=== PATIENT | female | born 1985 | race Caucasian/White ===

== ENCOUNTER 2021-10-16 20:06 | Emergency (ER) | payer OTHER, SELFPAY ==
[2021-10-16 21:21] VITALS: BP 152/87; PULSE 88; RESP 13; TEMP 36.4; O2SAT 93; BMI 56.9
--- NOTE | 2021-10-16 23:25 | ED.BACK ---
HPI - Back Pain/Injury General Chief Complaint: Back Pain/Injury Stated Complaint: work inj, lower back Time Seen by Provider: 10/16/21 22:36 Source: patient Mode of arrival: ambulatory Limitations: no limitations History of Present Illness HPI Narrative: Patient morbidly obese was at work was lifting and twisting a box on the shelf which was about 36 lb since then complaining of pain in the sacral area. No paresthesias in lower extremities no bladder or bowel involvement Related Data Previous Rx's Medication Instructions Recorded cyclobenzaprine 10 mg tablet 10 mg PO Q8H #20 tabs 10/16/21 oxycodone-acetaminophen 5 mg-325 1 tab PO Q6H PRN pain #20 tabs 10/16/21 mg tablet (Percocet) Allergies Allergy/AdvReac Type Severity Reaction Status Date / Time No Known Allergies Allergy Unverified 01/01/20 17:25 Review of Systems Review of Systems: Yes all other systems are reviewed and are negative PMFSH Social History Social History Advance Directives: No Advance Directives Information Provided: No Physical Exam Vital Signs: Vital Signs: Last Vital Signs Temp 97.5 F 10/16/21 21:21 Pulse 88 10/16/21 21:21 Resp 13 10/16/21 21:21 BP 152/87 H 10/16/21 21:21 Pulse Ox 93 10/16/21 21:21 O2 Del Method 10/16/21 21:21 BMI result Body Mass Index 56.9 Appearance: Alert. Oriented X3. No acute distress. Obese Neck: Normal inspection. Neck supple. CVS: Normal heart rate and rhythm. Pulses normal. Respiratory: No respiratory distress. Equal air entry bilateral, Abdomen: Soft and nontender. Bowel sounds are present, no mass palpable, no CVA tenderness Skin: Skin warm and dry. Normal skin color. Normal skin turgor. Extremities: No lower extremity edema. No calf tenderness back: Diffuse deep tenderness bilateral sacral area no focal spinal tenderness SLR negative good range of movement of the spine Neuro: Oriented X 3. No motor deficit. No sensory deficit MDM - Back Pain/Injury MDM Narrative Medical decision making narrative: Patient with muscular pain no signs of spinal cord involvement. No bladder or bowel involvement Secral sensations intact discharge patient home on pain medication and muscle aches Discharge Plan Discharge Clinical Impression: Strain of lumbar region Patient Disposition: Home, Self-Care Instructions: Back Pain (ED) Additional Instructions: Apply ice pack Take pain medication as prescribed and follow with PCP if not better Prescriptions: New cyclobenzaprine 10 mg tablet 10 mg PO Q8H Qty: 20 0RF oxycodone-acetaminophen [Percocet] 5-325 mg tablet 1 tab PO Q6H PRN (Reason: pain) Qty: 20 0RF Rx Instructions: Partial Fill upon patient request. Stand Alone Forms: Work/School Release
[2021-10-17] MEDS: Cyclobenzaprine HCl 10 MG TABLET PO (00:29)
[2021-10-17] MEDS: oxyCODONE HCl Immed Release 5 MG TABLET 10 MG PO (00:31)
== END 2021-10-17 00:39 | disposition home or self-care (01) ==
PROVIDERS: Emergency Provider Internal Medicine
DX: M54.50 Low back pain, unspecified (principal); Z79.899 Other long term (current) drug therapy
CPT/HCPCS: 99283

== ENCOUNTER 2022-08-13 16:14 | Inpatient (IN) | payer OTHER, SELFPAY ==
[2022-08-13] VITALS (9 sets, daily range): BP systolic 143–167; BP diastolic 73–94; PULSE 83–97; RESP 15–21; TEMP 36.6–37.3; O2SAT 92–98; BMI 57.0
--- NOTE | ~2022-08-13 | FL_ITS ---
EXAMINATION: XR FLUOROSCOPY WITH IMAGES CLINICAL INFORMATION: Distal radius fracture COMPARISON: Previous x-ray 08/13/2022 TECHNIQUE: Fluoroscopy Supervised By: Dr. Heraclio Bo. Fluoroscopy Time: 1.2 minutes. Cumulative Dose: 2.5 mGy. DAP: 0.05 mg/sq m. Images: 3. FINDINGS: Images demonstrate a plate and screws transfixing the distal radius fracture and K wire across the distal radius and ulna with improved alignment. There is a minimally displaced ulnar styloid fracture with improved alignment. FL/FL guidance in OR IMPRESSION: Fluoroscopic guidance for ORIF of distal radius fracture.
--- NOTE | ~2022-08-13 | CT_ITS ---
EXAMINATION: CT ANGIOGRAM UPPER EXTREMITY, RIGHT CLINICAL INFORMATION: Right wrist and forearm pain. COMPARISON: Radiographs from 08/13/2022 TECHNIQUE: Multidetector volumetric imaging of the right upper extremity is performed targeting from the elbow through the hand after administration of 80 mL of Omnipaque 350 IV contrast. Coronal, sagittal, and three-dimensional/MIP reformatted images are obtained on the technologist workstation under concurrent radiologist supervision. These are reviewed. This CT examination was performed using dose optimization techniques as appropriate, variously including the following: *Automated exposure control *Adjustment of mA and/or kV according to patient size (this includes techniques or standardized protocols for targeted exams where dose is matched to indication/reason for exam; i.e. extremities or head) *Use of iterative reconstruction technique DLP: 171 mGy-cm FINDINGS: Vascular: There is normal appearance of the radial and ulnar arteries. The interosseous artery is normal along the majority of its course. At the level of the distal radial fracture, this vessel is no longer well opacified. There is no contrast blush to suggest active extravasation. Comminuted distal radial metaphyseal fracture is again noted with multiple fragments identified. Fracture appears to extend to the radial styloid. No definite fracture line at the radiocarpal articulation. There is mild volar displacement of the distal fragments. Superficial edema the site of fracture. Ulnar styloid fracture again noted with mild displacement. The carpal bones appear well aligned. The bones of the hand appear intact. Appropriate alignment at the elbow. No elbow joint effusion. CT/CT angio UE RT IMPRESSION: 1. Comminuted distal radial metaphyseal fracture with extension to the radial styloid. No definite intra-articular extension at the radiocarpal articulation. 2. Ulnar styloid fracture again noted. 3. The radial and ulnar arteries are intact. The interosseous artery is not well opacified at the level of the distal radial fracture. No active extravasation seen. This could be secondary to compression or vasospasm.
--- NOTE | ~2022-08-13 | XR_ITS ---
Exams: 3 views right wrist and 2 views right forearm HISTORY: Status post reduction. Comparison made to earlier exam same day. FINDINGS: Proximal radius and ulnar appears intact. Following reduction, the appearance of the comminuted fracture appears without measurable change. Remains measurably displaced. No new findings. XR/XR forearm RT 2V IMPRESSION: No significant change in the appearance of the comminuted displaced radial fracture. No proximal abnormality of the forearm.
--- NOTE | ~2022-08-13 | XR_ITS ---
EXAMINATION: XR WRIST, RIGHT CLINICAL INFORMATION: Post reduction COMPARISON: 08/13/2022 TECHNIQUE: PA, lateral, and oblique views of the right wrist. FINDINGS: Splinting material now in place. Redemonstration of the comminuted distal radial metaphyseal fracture. There is persistent volar displacement of the distal fragment. Ulnar styloid fracture which remains displaced. The carpal rows are well aligned. Diffuse soft tissue swelling. XR/XR wrist RT 2V IMPRESSION: Comminuted distal radial metaphyseal fracture with persistent volar displacement of the distal fragment. Ulnar styloid fracture.
--- NOTE | ~2022-08-13 | XR_ITS ---
Exams: 3 views right wrist and 2 views right forearm HISTORY: Status post reduction. Comparison made to earlier exam same day. FINDINGS: Proximal radius and ulnar appears intact. Following reduction, the appearance of the comminuted fracture appears without measurable change. Remains measurably displaced. No new findings. XR/XR wrist RT min 3V IMPRESSION: No significant change in the appearance of the comminuted displaced radial fracture. No proximal abnormality of the forearm.
--- NOTE | ~2022-08-13 | XR_ITS ---
EXAMINATION: XR WRIST, RIGHT XR HAND, RIGHT CLINICAL INFORMATION: Pain status post fall COMPARISON: None available. TECHNIQUE: PA, lateral, and oblique views of the right wrist and PA, lateral, and oblique views of the right hand FINDINGS: Acute fracture of the distal radius with comminution. Volar displacement of the epiphysis one shaft width with associated mildly displaced ulnar styloid fracture. Carpal bones appear intact. XR/XR hand wrist RT IMPRESSION: Acute displaced fracture of the distal radius and ulnar styloid fracture as above.
--- NOTE | 2022-08-13 17:55 | ED_ITS ---
HPI - Extremity Problem General Chief complaint: Extremity Injury, Upper <NAYELI Merritt - Last Filed: 08/15/22 13:07> Stated complaint: fall/R arm inj <NAYELI Merritt Last Filed: 08/15/22 13:07> Time Seen by Provider: 08/13/22 18:24 <NAYELI Merritt Last Filed: 08/15/22 13:07> Source: patient <NAYELI Izaguirre Last Filed: 08/14/22 01:32> Mode of arrival: ambulatory <NAYELI Izaguirre Last Filed: 08/14/22 01:32> Limitations: no limitations <NAYELI Izaguirre Last Filed: 08/14/22 01:32> History of Present Illness HPI Narrative: 37 year old female with no significant PMH presents to the ED with R forearm/wrist pain after a FOOSH, reports she tripped and fell. Denies preceding symptoms to falls. Patient denies head/abdomen/pelvis injury. No prior injuries to the area. Patient is not on blood thinners. Denies numbness and tingling <NAYELI Izaguirre Last Filed: 08/14/22 01:32> Related Data Home medications: Home Medications Medication Instructions Recorded Confirmed albuterol sulfate 90 mcg/actuation 2 puff inhalation Q4H PRN wheezing 08/14/22 08/14/22 aerosol inhaler (Ventolin HFA) atorvastatin 10 mg tablet 20 mg PO DAILY 08/14/22 08/14/22 dapagliflozin 5 mg tablet (Farxiga) 5 mg PO DAILY 08/14/22 08/14/22 ferrous sulfate 325 mg (65 mg 325 mg PO DAILY 08/14/22 08/14/22 iron) tablet glipizide 5 mg tablet, extended 5 mg PO DAILY 08/14/22 08/14/22 release 24 hr levothyroxine 300 mcg tablet 150 mcg PO ALEXIS@59908/14/22 08/14/22 levothyroxine 300 mcg tablet 300 mcg PO MOTUWETHFRSA@0600 08/14/22 08/14/22 losartan 25 mg tablet 25 mg PO DAILY 08/14/22 08/14/22 omeprazole 20 mg capsule,delayed 20 mg PO DAILY 08/14/22 08/14/22 release <NAYELI Merritt Last Filed: 08/15/22 13:07> Allergies/Adverse reactions: Allergies Allergy/AdvReac Type Severity Reaction Status Date / Time No Known Allergies Allergy Verified 08/13/22 17:55 <NAYELI Merritt Last Filed: 08/15/22 13:07> Review of Systems Review of Systems: Constitutional : No Weight loss, No Fever, No Chills, No Fatigue, No Malaise ENT/Mouth : No sore throat, No Rhinorrhea Eyes: No Eye Pain, No Swelling, No Redness Cardiovascular : No Chest Pain, No SOB, No Dyspnea on Exertion, No Orthopnea, No Edema, No Palpitations Respiratory : No Cough, No Sputum, No Wheezing Gastrointestinal : No Nausea, No Vomiting, No Diarrhea, No Constipation, No abdominal Pain, No Hematochezia, No Melena Genitourinary : No Dysuria, No Urinary Frequency, No Hematuria, Musculoskeletal : + joint pain, No Myalgias, + Joint Swelling Skin : No Skin Lesions, No rash Neuro : No Weakness, No Numbness, No Dizziness, No Headache Psych : No Anxiety/Panic, No Depression All other systems reviewed and are negative <NAYELI Izaguirre - Last Filed: 08/14/22 01:32> Yes all other systems are reviewed and are negative <NAYELI Izaguirre Last Filed: 08/14/22 01:32> PMFSH Past Medical History Attestation statement: The following information was validated with the patient. <NAYELI Izaguirre - Last Filed: 08/14/22 01:32> Source: old records reviewed and nursing notes reviewed <NAYELI Izaguirre - Last Filed: 08/14/22 01:32> Medical History: Medical History (Updated 08/14/22 @ 12:58 by Janet Bettencourt NP) Asthma Diabetes 1.5, managed as type 2 GERD (gastroesophageal reflux disease) Hyperlipidemia Hypertension Hypothyroidism <NAYELI Merritt Last Filed: 08/15/22 13:07> Social History Social History: Social History Household Members: Spouse Housing: House Do you presently have visiting nurse or other home services: No Alcohol intake: current Alcohol intake frequency: holidays/special occasions only Alcohol type: hard liquor Patient Tobacco Use Status: Current everyday Tobacco user Tobacco use type: Cigarette e-Cigarette/Vaping Use: Never Used Second Hand Smoke Exposure: Yes Substance Use Type: Other service: No <NAYELI Merritt - Last Filed: 08/15/22 13:07> Physical Exam Vital Signs: Vital Signs: Last Vital Signs Temp 97.1 F 08/15/22 07:57 Pulse 79 08/15/22 07:57 Resp 18 08/15/22 07:57 BP 138/63 08/15/22 07:57 Pulse Ox 95 08/15/22 07:57 O2 Del Method Room Air 08/15/22 07:57 O2 Flow Rate 2 08/14/22 07:22 Oxygen Flow Rate 2 08/13/22 22:05 BMI result Body Mass Index 57.0 <NAYELI Merritt - Last Filed: 08/15/22 13:07> Vital Signs: Last Vital Signs Temp 97.1 F 08/15/22 07:57 Pulse 79 08/15/22 07:57 Resp 18 08/15/22 07:57 BP 138/63 08/15/22 07:57 Pulse Ox 95 08/15/22 07:57 O2 Del Method Room Air 08/15/22 07:57 O2 Flow Rate 2 08/14/22 07:22 Oxygen Flow Rate 2 08/13/22 22:05 BMI result Body Mass Index 57.0 vss <NAYELI Izaguirre - Last Filed: 08/14/22 01:32> Vital Signs: Last Vital Signs Temp 97.1 F 08/15/22 07:57 Pulse 79 08/15/22 07:57 Resp 18 08/15/22 07:57 BP 138/63 08/15/22 07:57 Pulse Ox 95 08/15/22 07:57 O2 Del Method Room Air 08/15/22 07:57 O2 Flow Rate 2 08/14/22 07:22 Oxygen Flow Rate 2 08/13/22 22:05 BMI result Body Mass Index 57.0 <NAYELI Khanna - Last Filed: 08/14/22 08:44> Appearance: Alert.? Oriented X3.? No acute distress.? Head: Normocephalic, atraumatic, no step-offs or deformities Eyes: Pupils equal, round and reactive to light.? Neck: Normal inspection.? Neck supple.? CVS: Normal heart rate and rhythm.? Pulses normal.? Respiratory: No respiratory distress.? Breath sounds normal.? Abdomen: Soft and nontender.? Skin: Skin warm and dry.? Normal skin color.? Normal skin turgor.? Extremities: No lower extremity edema.? No calf ttp. 5/5 strength to bilateral upper and lower extremities 2 + radial pulses equal and b/l no wrist drop, brisk capillary refill < 2 seconds to b/l UE. Full ROM to L writ unable to move R wrist due to pain. TTP overlying entire R. wrist w/ dorsal ecchymosis. Normal L wrist. + deformity of R wrist. Neuro: Oriented X 3.? No motor deficit.? No sensory deficit. CN 2-12 intact <NAYELI Izaguirre Last Filed: 08/14/22 01:32> Course Course Course Narrative: RME: 37 yold female presents to the ED for right wrist pain after falling unto hand at home. patient staes no head trauma. xray ordered <NAYELI Merritt Last Filed: 08/15/22 13:07> Reevaluation(s) Reevaluation #1: X-ray showed an acute displaced fracture of the distal radius and ulnar st yloid fracture. Hematoma block was done at the bedside to try to reduce however patient too much pain, I did order images after trying to reduce it however unsure if successful. Will proceed to do conscious sedation verbal and written consent obtained. Patient last drink something around 15:00. My attending aware. <NAYELI Izaguirre Last Filed: 08/14/22 01:32> Time: 19:00 <NAYELI Izaguirre Last Filed: 08/14/22 01:32> Reevaluation #2: Post hematoma block there is no significant change in the appearance of comminuted displaced radial fracture. No proximal abnormality of the forearm. <NAYELI Izaguirre Last Filed: 08/14/22 01:32> Time: 21:35 <NAYELI Izaguirre Last Filed: 08/14/22 01:32> Reevaluation #3: I did obtain written and verbal consent for conscious sedation, javed Oconnor at the bedside for conscious sedation for right wrist reduction. Mallampati score of 3, respiratory called to the bedside. Plan on sedating with propofol. <NAYELI Izaguirre Last Filed: 08/14/22 01:32> Time: 21:35 <NAYELI Izaguirre Last Filed: 08/14/22 01:32> Additional Reevaluation(s): Unsuccessful reduction Spoke with orthopedic Manuel about this case, they will evaluate her in the morning, we will control pain overnight, if patient cannot be operated on tomorrow morning ortho agreed to admit this patient. You note, patient's white blood cells elevated likely secondary to acute trauma, unlikely infectious in origin. Chemistry unremarkable. Coags unremarkable. Patient to remain NPO until the morning Night Doctor doctor oconnor aware of case. <NAYELI Izaguirre Last Filed: 08/14/22 01:32> Unsuccessful reduction Spoke with carlos Jackson about this case, they will evaluate her in the morning, we will control pain overnight, if patient cannot be operated on tomorrow morning ortho agreed to admit this patient. You note, patient's white blood cells elevated likely secondary to acute trauma, unlikely infectious in origin. Chemistry unremarkable. Coags unremarkable. Patient to remain NPO until the morning Night Doctor doctor oconnor aware of case. 08/14/22--case discussed with OrthopedicsNAYELI who evaluated patient in the ED, plan for admission and likely OR tomorrow <NAYELI hKanna - Last Filed: 08/14/22 08:44> Medications Administered Generic Name Dose Route Start Last Admin Trade Name Freq PRN Reason Stop Dose Admin Atorvastatin Calcium 20 mg 08/15/22 09:00 08/15/22 08:25 Atorvastatin Calcium 20 Mg Tablet PO 20 mg DAILY [facility] Administration Docusate Sodium 100 mg 08/14/22 09:00 08/15/22 08:25 Docusate Sodium 100 Mg Capsule PO 100 mg BID LAURA Administration Empagliflozin 10 mg 08/15/22 09:00 08/15/22 08:27 Empagliflozin 10 Mg Tablet PO Not Given DAILY [facility] Ferrous Sulfate 324 mg 08/15/22 09:00 08/15/22 08:27 Ferrous Sulfate 324 Mg Tablet.Dr PO Not Given DAILY [facility] Hydromorphone HCl 1 mg 08/14/22 03:14 08/14/22 23:38 Hydromorphone Hcl 1 Mg/Ml Syringe IVPUSH 1 mg RQ4H WHILE AWAKE PRN Administration Pain, Severe (Pain Scale 8-10) Protocol Lactated Ringer's 1,000 mls @ 100 mls/hr 08/14/22 09:00 08/15/22 06:28 Lr IVCONT 100 mls/hr .Q10H [facility] Administration Insulin Human Lispro 0 unit 08/15/22 11:30 08/15/22 11:33 Insulin Lispro 100 Unit/Ml 3 Ml Vial SUBCUT Not Given QIDACHS [facility] Protocol Losartan Potassium 25 mg 08/15/22 09:00 08/15/22 08:26 Losartan Potassium 25 Mg Tablet PO 25 mg DAILY [facility] Administration Protocol Sodium Chloride 3 ml 08/14/22 16:00 08/15/22 06:51 0.9 % Sodium Chloride Flush 3 Ml Syringe IVFLUSH Not Given QSHIFT [facility] Discontinued Medications Generic Name Dose Route Start Last Admin Trade Name Freq PRN Reason Stop Dose Admin Fentanyl 50 mcg 08/13/22 22:49 08/13/22 23:05 Fentanyl Citrate/Pf 100 Mcg/2 Ml Vial IVPUSH 08/13/22 22:50 50 mcg ONCE ONE Administration Protocol Lidocaine HCl 30 ml 08/13/22 18:57 08/13/22 19:14 Lidocaine Hcl 1 % Mpf 30 Ml Vial SUBCUT 08/13/22 18:58 30 ml ONCE ONE Administration Protocol Morphine Sulfate 4 mg 08/13/22 19:02 08/13/22 19:14 Morphine Sulfate 4 Mg/Ml Cartridge IVPUSH 08/13/22 19:03 4 mg ONCE ONE Administration Protocol Morphine Sulfate 4 mg 08/13/22 21:35 08/13/22 22:30 Morphine Sulfate 4 Mg/Ml Cartridge IVPUSH 08/13/22 21:36 4 mg ONCE ONE Administration Protocol Propofol 170 mg 08/13/22 21:52 08/13/22 21:57 Propofol 200 Mg/20 Ml Vial IVPUSH 08/13/22 21:53 170 mg ONCE ONE Administration <NAYELI Merritt - Last Filed: 08/15/22 13:07> Medications Administered Generic Name Dose Route Start Last Admin Trade Name Maricarmen PRN Reason Stop Dose Admin Atorvastatin Calcium 20 mg 08/15/22 09:00 08/15/22 08:25 Atorvastatin Calcium 20 Mg Tablet PO 20 mg DAILY [facility] Administration Docusate Sodium 100 mg 08/14/22 09:00 08/15/22 08:25 Docusate Sodium 100 Mg Capsule PO 100 mg BID [facility] Administration Empagliflozin 10 mg 08/15/22 09:00 08/15/22 08:27 Empagliflozin 10 Mg Tablet PO Not Given DAILY [facility] Ferrous Sulfate 324 mg 08/15/22 09:00 08/15/22 08:27 Ferrous Sulfate 324 Mg Tablet.Dr PO Not Given DAILY [facility] Hydromorphone HCl 1 mg 08/14/22 03:14 08/14/22 23:38 Hydromorphone Hcl 1 Mg/Ml Syringe IVPUSH 1 mg RQ4H WHILE AWAKE PRN Administration Pain, Severe (Pain Scale 8-10) Protocol Lactated Ringer's 1,000 mls @ 100 mls/hr 08/14/22 09:00 08/15/22 06:28 Lr IVCONT 100 mls/hr .Q10H [facility] Administration Insulin Human Lispro 0 unit 08/15/22 11:30 08/15/22 11:33 Insulin Lispro 100 Unit/Ml 3 Ml Vial SUBCUT Not Given QIDACHS [facility] Protocol Losartan Potassium 25 mg 08/15/22 09:00 08/15/22 08:26 Losartan Potassium 25 Mg Tablet PO 25 mg DAILY [facility] Administration Protocol Sodium Chloride 3 ml 08/14/22 16:00 08/15/22 06:51 0.9 % Sodium Chloride Flush 3 Ml Syringe IVFLUSH Not Given QSHIFT [facility] Discontinued Medications Generic Name Dose Route Start Last Admin Trade Name Jovannyq PRN Reason Stop Dose Admin Fentanyl 50 mcg 08/13/22 22:49 08/13/22 23:05 Fentanyl Citrate/Pf 100 Mcg/2 Ml Vial IVPUSH 08/13/22 22:50 50 mcg ONCE ONE Administration Protocol Lidocaine HCl 30 ml 08/13/22 18:57 08/13/22 19:14 Lidocaine Hcl 1 % Mpf 30 Ml Vial SUBCUT 08/13/22 18:58 30 ml ONCE ONE Administration Protocol Morphine Sulfate 4 mg 08/13/22 19:02 08/13/22 19:14 Morphine Sulfate 4 Mg/Ml Cartridge IVPUSH 08/13/22 19:03 4 mg ONCE ONE Administration Protocol Morphine Sulfate 4 mg 08/13/22 21:35 08/13/22 22:30 Morphine Sulfate 4 Mg/Ml Cartridge IVPUSH 08/13/22 21:36 4 mg ONCE ONE Administration Protocol Propofol 170 mg 08/13/22 21:52 08/13/22 21:57 Propofol 200 Mg/20 Ml Vial IVPUSH 08/13/22 21:53 170 mg ONCE ONE Administration <NAYELI Izaguirre - Last Filed: 08/14/22 01:32> Medications Administered Generic Name Dose Route Start Last Admin Trade Name Freq PRN Reason Stop Dose Admin Atorvastatin Calcium 20 mg 08/15/22 09:00 08/15/22 08:25 Atorvastatin Calcium 20 Mg Tablet PO 20 mg DAILY [facility] Administration Docusate Sodium 100 mg 08/14/22 09:00 08/15/22 08:25 Docusate Sodium 100 Mg Capsule PO 100 mg BID [facility] Administration Empagliflozin 10 mg 08/15/22 09:00 08/15/22 08:27 Empagliflozin 10 Mg Tablet PO Not Given DAILY [facility] Ferrous Sulfate 324 mg 08/15/22 09:00 08/15/22 08:27 Ferrous Sulfate 324 Mg Tablet.Dr PO Not Given DAILY [facility] Hydromorphone HCl 1 mg 08/14/22 03:14 08/14/22 23:38 Hydromorphone Hcl 1 Mg/Ml Syringe IVPUSH 1 mg RQ4H WHILE AWAKE PRN Administration Pain, Severe (Pain Scale 8-10) Protocol Lactated Ringer's 1,000 mls @ 100 mls/hr 08/14/22 09:00 08/15/22 06:28 Lr IVCONT 100 mls/hr .Q10H [facility] Administration Insulin Human Lispro 0 unit 08/15/22 11:30 08/15/22 11:33 Insulin Lispro 100 Unit/Ml 3 Ml Vial SUBCUT Not Given QIDACHS [facility] Protocol Losartan Potassium 25 mg 08/15/22 09:00 08/15/22 08:26 Losartan Potassium 25 Mg Tablet PO 25 mg DAILY [facility] Administration Protocol Sodium Chloride 3 ml 08/14/22 16:00 08/15/22 06:51 0.9 % Sodium Chloride Flush 3 Ml Syringe IVFLUSH Not Given QSHIFT [facility] Discontinued Medications Generic Name Dose Route Start Last Admin Trade Name Maricarmen PRN Reason Stop Dose Admin Fentanyl 50 mcg 08/13/22 22:49 08/13/22 23:05 Fentanyl Citrate/Pf 100 Mcg/2 Ml Vial IVPUSH 08/13/22 22:50 50 mcg ONCE ONE Administration Protocol Lidocaine HCl 30 ml 08/13/22 18:57 08/13/22 19:14 Lidocaine Hcl 1 % Mpf 30 Ml Vial SUBCUT 08/13/22 18:58 30 ml ONCE ONE Administration Protocol Morphine Sulfate 4 mg 08/13/22 19:02 08/13/22 19:14 Morphine Sulfate 4 Mg/Ml Cartridge IVPUSH 08/13/22 19:03 4 mg ONCE ONE Administration Protocol Morphine Sulfate 4 mg 08/13/22 21:35 08/13/22 22:30 Morphine Sulfate 4 Mg/Ml Cartridge IVPUSH 08/13/22 21:36 4 mg ONCE ONE Administration Protocol Propofol 170 mg 08/13/22 21:52 08/13/22 21:57 Propofol 200 Mg/20 Ml Vial IVPUSH 08/13/22 21:53 170 mg ONCE ONE Administration <NAYELI Khanna - Last Filed: 08/14/22 08:44> Medical Decision Making Medical Decision Making [facility] Narrative: 1846 37 yo F presents s/p FOOSH No lower extremity edema.? No calf ttp. 5/5 strength to bilateral upper and lower extremities 2 + radial pulses equal and b/l no wrist drop, brisk capillary refill < 2 seconds to b/l UE. Full ROM to L writ unable to move R wrist due to pain. TTP overlying entire R. wrist w/ dorsal ecchymosis. Normal L wrist. + deformity of R wrist. Concern for fracture with dislocation. No signs of neurovascular compromise. Unlikely sprain or strain. Also some concern for ligamentous injury. Plan imaging pain meds <NAYELI Izaguirre - Last Filed: 08/14/22 01:32> Differential Diagnosis Differential Diagnoses: The differential diagnosis associated with the presentation includes <NAYELI Izaguirre - Last Filed: 08/14/22 01:32> Concern for fracture with dislocation. No signs of neurovascular compromise. Unlikely sprain or strain. Also some concern for ligamentous injury. <NAYELI Izaguirre - Last Filed: 08/14/22 01:32> Admission/Observation Consideration of admission/observation: Escalation of care including admission/observation considered <NAYELI Izaguirre - Last Filed: 08/14/22 01:32> likely <NAYELI Izaguirre - Last Filed: 08/14/22 01:32> Consult Healthcare Provider Management of the patient was discussed with: Distribution Lineman (Manuel mauricio ) <NAYELI Izaguirre - Last Filed: 08/14/22 01:32> Lab Data MDM Lab Attestation statement: I reviewed the patient's lab results. <NAYELI Izaguirre - Last Filed: 08/14/22 01:32> Result Diagrams: 08/13/22 22:57 08/13/22 22:57 <NAYELI Merritt - Last Filed: 08/15/22 13:07> Labs: Lab Results 08/13/22 08/13/22 08/13/22 Range/Units 22:57 22:57 22:57 WBC 18.4 H (4.8-10.8) X10*3/uL RBC 5.56 H (4.20-5.50) X10*6/uL Hgb 16.6 H (12.0-16.0) g/dl Hct 49.9 H (37.0-47.0) % MCV 89.7 (80.0-98.0) fL MCH 29.9 (27.0-33.0) pg MCHC 33.3 (31.0-35.0) g/dl RDW 13.2 (11.0-16.0) % Plt Count 324 (160-400) X10*3/uL MPV 9.5 (9.4-12.3) fL Immature Gran % (Auto) 0.4 (0.0-0.4) % Neut % (Auto) 79.4 H (45-73) % Lymph % (Auto) 14.3 L (20-40) % [place] % (Auto) 5.3 (2-11) % Eos % (Auto) 0.4 (0-4) % Baso % (Auto) 0.2 (0-2) % Lymph # (Auto) 2.6 (1.2-4.9) X10*3/uL [place] # (Auto) 1.0 (0.1-1.2) X10*3/uL Eos # (Auto) 0.1 (0.0-0.4) X10*3/uL Baso # (Auto) 0.0 (0.0-0.2) X10*3/uL Abs Immat Gran (auto) 0.08 H (0.00-0.03) X10*3/uL Absolute Neuts (auto) 14.6 H (2.0-8.3) x10*3/uL Absolute Nucleated RBC 0.000 (0.0-0.012) X10*3/uL Nucleated RBC % (auto) 0.0 (0.0-0.2) /100WBC PT 11.3 (10.0-13.1) SEC INR 1.0 (0.9-1.1) Sodium 140 (135-145) mmol/L Potassium 4.3 (3.3-5.1) mmol/L Chloride 105 (96-108) mmol/L Carbon Dioxide 27 (22-29) mmol/L Anion Gap 12 (12-20) BUN 13 (9-16) mg/dL Creatinine 0.69 (0.5-1.4) mg/dL Estim Creat Clear Calc 151.2 Estimated GFR > 60 Random Glucose 82 (60-115) mg/dL Calcium 9.6 (8.4-10.2) mg/dL Magnesium 1.8 (1.6-2.6) mg/dL Total Bilirubin 0.7 (0.0-1.0) mg/dL AST 19 (5-31) U/L ALT 24 (0-31) U/L Alkaline Phosphatase 82 (39-117) U/L Total Protein 7.2 (6.5-8.0) g/dL Albumin 4.0 (3.5-5.0) g/dL Beta HCG, Quant < 2 mIU/mL COVID-19 ([facility]) (Negative) COVID-19 Clin Com 08/13/22 Range/Units 22:57 WBC (4.8-10.8) X10*3/uL RBC (4.20-5.50) X10*6/uL Hgb (12.0-16.0) g/dl Hct (37.0-47.0) % MCV (80.0-98.0) fL MCH (27.0-33.0) pg MCHC (31.0-35.0) g/dl RDW (11.0-16.0) % Plt Count (160-400) X10*3/uL MPV (9.4-12.3) fL Immature Gran % (Auto) (0.0-0.4) % Neut % (Auto) (45-73) % Lymph % (Auto) (20-40) % [place] % (Auto) (2-11) % Eos % (Auto) (0-4) % Baso % (Auto) (0-2) % Lymph # (Auto) (1.2-4.9) X10*3/uL [place] # (Auto) (0.1-1.2) X10*3/uL Eos # (Auto) (0.0-0.4) X10*3/uL Baso # (Auto) (0.0-0.2) X10*3/uL Abs Immat Gran (auto) (0.00-0.03) X10*3/uL Absolute Neuts (auto) (2.0-8.3) x10*3/uL Absolute Nucleated RBC (0.0-0.012) X10*3/uL Nucleated RBC % (auto) (0.0-0.2) /100WBC PT (10.0-13.1) SEC INR (0.9-1.1) Sodium (135-145) mmol/L Potassium (3.3-5.1) mmol/L Chloride (96-108) mmol/L Carbon Dioxide (22-29) mmol/L Anion Gap (12-20) BUN (9-16) mg/dL Creatinine (0.5-1.4) mg/dL Estim Creat Clear Calc Estimated GFR Random Glucose (60-115) mg/dL Calcium (8.4-10.2) mg/dL Magnesium (1.6-2.6) mg/dL Total Bilirubin (0.0-1.0) mg/dL AST (5-31) U/L ALT (0-31) U/L Alkaline Phosphatase (39-117) U/L Total Protein (6.5-8.0) g/dL Albumin (3.5-5.0) g/dL Beta HCG, Quant mIU/mL COVID-19 ([facility]) Negative (Negative) COVID-19 Clin Com See Note <NAYELI Merritt - Last Filed: 08/15/22 13:07> Lab Results 08/13/22 08/13/22 08/13/22 Range/Units 22:57 22:57 22:57 WBC 18.4 H (4.8-10.8) X10*3/uL RBC 5.56 H (4.20-5.50) X10*6/uL Hgb 16.6 H (12.0-16.0) g/dl Hct 49.9 H (37.0-47.0) % MCV 89.7 (80.0-98.0) fL MCH 29.9 (27.0-33.0) pg MCHC 33.3 (31.0-35.0) g/dl RDW 13.2 (11.0-16.0) % Plt Count 324 (160-400) X10*3/uL MPV 9.5 (9.4-12.3) fL Immature Gran % (Auto) 0.4 (0.0-0.4) % Neut % (Auto) 79.4 H (45-73) % Lymph % (Auto) 14.3 L (20-40) % [place] % (Auto) 5.3 (2-11) % Eos % (Auto) 0.4 (0-4) % Baso % (Auto) 0.2 (0-2) % Lymph # (Auto) 2.6 (1.2-4.9) X10*3/uL [place] # (Auto) 1.0 (0.1-1.2) X10*3/uL Eos # (Auto) 0.1 (0.0-0.4) X10*3/uL Baso # (Auto) 0.0 (0.0-0.2) X10*3/uL Abs Immat Gran (auto) 0.08 H (0.00-0.03) X10*3/uL Absolute Neuts (auto) 14.6 H (2.0-8.3) x10*3/uL Absolute Nucleated RBC 0.000 (0.0-0.012) X10*3/uL Nucleated RBC % (auto) 0.0 (0.0-0.2) /100WBC PT 11.3 (10.0-13.1) SEC INR 1.0 (0.9-1.1) Sodium 140 (135-145) mmol/L Potassium 4.3 (3.3-5.1) mmol/L Chloride 105 (96-108) mmol/L Carbon Dioxide 27 (22-29) mmol/L Anion Gap 12 (12-20) BUN 13 (9-16) mg/dL Creatinine 0.69 (0.5-1.4) mg/dL Estim Creat Clear Calc 151.2 Estimated GFR > 60 Random Glucose 82 (60-115) mg/dL Calcium 9.6 (8.4-10.2) mg/dL Magnesium 1.8 (1.6-2.6) mg/dL Total Bilirubin 0.7 (0.0-1.0) mg/dL AST 19 (5-31) U/L ALT 24 (0-31) U/L Alkaline Phosphatase 82 (39-117) U/L Total Protein 7.2 (6.5-8.0) g/dL Albumin 4.0 (3.5-5.0) g/dL Beta HCG, Quant < 2 mIU/mL COVID-19 ([facility]) (Negative) COVID-19 Clin Com 08/13/22 Range/Units 22:57 WBC (4.8-10.8) X10*3/uL RBC (4.20-5.50) X10*6/uL Hgb (12.0-16.0) g/dl Hct (37.0-47.0) % MCV (80.0-98.0) fL MCH (27.0-33.0) pg MCHC (31.0-35.0) g/dl RDW (11.0-16.0) % Plt Count (160-400) X10*3/uL MPV (9.4-12.3) fL Immature Gran % (Auto) (0.0-0.4) % Neut % (Auto) (45-73) % Lymph % (Auto) (20-40) % [place] % (Auto) (2-11) % Eos % (Auto) (0-4) % Baso % (Auto) (0-2) % Lymph # (Auto) (1.2-4.9) X10*3/uL [place] # (Auto) (0.1-1.2) X10*3/uL Eos # (Auto) (0.0-0.4) X10*3/uL Baso # (Auto) (0.0-0.2) X10*3/uL Abs Immat Gran (auto) (0.00-0.03) X10*3/uL Absolute Neuts (auto) (2.0-8.3) x10*3/uL Absolute Nucleated RBC (0.0-0.012) X10*3/uL Nucleated RBC % (auto) (0.0-0.2) /100WBC PT (10.0-13.1) SEC INR (0.9-1.1) Sodium (135-145) mmol/L Potassium (3.3-5.1) mmol/L Chloride (96-108) mmol/L Carbon Dioxide (22-29) mmol/L Anion Gap (12-20) BUN (9-16) mg/dL Creatinine (0.5-1.4) mg/dL Estim Creat Clear Calc Estimated GFR Random Glucose (60-115) mg/dL Calcium (8.4-10.2) mg/dL Magnesium (1.6-2.6) mg/dL Total Bilirubin (0.0-1.0) mg/dL AST (5-31) U/L ALT (0-31) U/L Alkaline Phosphatase (39-117) U/L Total Protein (6.5-8.0) g/dL Albumin (3.5-5.0) g/dL Beta HCG, Quant mIU/mL COVID-19 ([facility]) Negative (Negative) COVID-19 Clin Com See Note <NAYELI Izaguirre - Last Filed: 08/14/22 01:32> Lab Results 08/13/22 08/13/22 08/13/22 Range/Units 22:57 22:57 22:57 WBC 18.4 H (4.8-10.8) X10*3/uL RBC 5.56 H (4.20-5.50) X10*6/uL Hgb 16.6 H (12.0-16.0) g/dl Hct 49.9 H (37.0-47.0) % MCV 89.7 (80.0-98.0) fL MCH 29.9 (27.0-33.0) pg MCHC 33.3 (31.0-35.0) g/dl RDW 13.2 (11.0-16.0) % Plt Count 324 (160-400) X10*3/uL MPV 9.5 (9.4-12.3) fL Immature Gran % (Auto) 0.4 (0.0-0.4) % Neut % (Auto) 79.4 H (45-73) % Lymph % (Auto) 14.3 L (20-40) % [place] % (Auto) 5.3 (2-11) % Eos % (Auto) 0.4 (0-4) % Baso % (Auto) 0.2 (0-2) % Lymph # (Auto) 2.6 (1.2-4.9) X10*3/uL [place] # (Auto) 1.0 (0.1-1.2) X10*3/uL Eos # (Auto) 0.1 (0.0-0.4) X10*3/uL Baso # (Auto) 0.0 (0.0-0.2) X10*3/uL Abs Immat Gran (auto) 0.08 H (0.00-0.03) X10*3/uL Absolute Neuts (auto) 14.6 H (2.0-8.3) x10*3/uL Absolute Nucleated RBC 0.000 (0.0-0.012) X10*3/uL Nucleated RBC % (auto) 0.0 (0.0-0.2) /100WBC PT 11.3 (10.0-13.1) SEC INR 1.0 (0.9-1.1) Sodium 140 (135-145) mmol/L Potassium 4.3 (3.3-5.1) mmol/L Chloride 105 (96-108) mmol/L Carbon Dioxide 27 (22-29) mmol/L Anion Gap 12 (12-20) BUN 13 (9-16) mg/dL Creatinine 0.69 (0.5-1.4) mg/dL Estim Creat Clear Calc 151.2 Estimated GFR > 60 Random Glucose 82 (60-115) mg/dL Calcium 9.6 (8.4-10.2) mg/dL Magnesium 1.8 (1.6-2.6) mg/dL Total Bilirubin 0.7 (0.0-1.0) mg/dL AST 19 (5-31) U/L ALT 24 (0-31) U/L Alkaline Phosphatase 82 (39-117) U/L Total Protein 7.2 (6.5-8.0) g/dL Albumin 4.0 (3.5-5.0) g/dL Beta HCG, Quant < 2 mIU/mL COVID-19 ([facility]) (Negative) COVID-19 Clin Com 08/13/22 Range/Units 22:57 WBC (4.8-10.8) X10*3/uL RBC (4.20-5.50) X10*6/uL Hgb (12.0-16.0) g/dl Hct (37.0-47.0) % MCV (80.0-98.0) fL MCH (27.0-33.0) pg MCHC (31.0-35.0) g/dl RDW (11.0-16.0) % Plt Count (160-400) X10*3/uL MPV (9.4-12.3) fL Immature Gran % (Auto) (0.0-0.4) % Neut % (Auto) (45-73) % Lymph % (Auto) (20-40) % [place] % (Auto) (2-11) % Eos % (Auto) (0-4) % Baso % (Auto) (0-2) % Lymph # (Auto) (1.2-4.9) X10*3/uL [place] # (Auto) (0.1-1.2) X10*3/uL Eos # (Auto) (0.0-0.4) X10*3/uL Baso # (Auto) (0.0-0.2) X10*3/uL Abs Immat Gran (auto) (0.00-0.03) X10*3/uL Absolute Neuts (auto) (2.0-8.3) x10*3/uL Absolute Nucleated RBC (0.0-0.012) X10*3/uL Nucleated RBC % (auto) (0.0-0.2) /100WBC PT (10.0-13.1) SEC INR (0.9-1.1) Sodium (135-145) mmol/L Potassium (3.3-5.1) mmol/L Chloride (96-108) mmol/L Carbon Dioxide (22-29) mmol/L Anion Gap (12-20) BUN (9-16) mg/dL Creatinine (0.5-1.4) mg/dL Estim Creat Clear Calc Estimated GFR Random Glucose (60-115) mg/dL Calcium (8.4-10.2) mg/dL Magnesium (1.6-2.6) mg/dL Total Bilirubin (0.0-1.0) mg/dL AST (5-31) U/L ALT (0-31) U/L Alkaline Phosphatase (39-117) U/L Total Protein (6.5-8.0) g/dL Albumin (3.5-5.0) g/dL Beta HCG, Quant mIU/mL COVID-19 ([facility]) Negative (Negative) COVID-19 Clin Com See Note <NAYELI Khanna - Last Filed: 08/14/22 08:44> Independent Interpretation I performed an independent interpretation of an: Plain X-Ray (XR/XR hand wrist RT IMPRESSION: Acute displaced fracture of the distal radius and ulnar styloid fracture as above.) <NAYELI Izaguirre Last Filed: 08/14/22 01:32> Radiology Impression Discussion of test interpretation with radiology: I have reviewed the radiologist's reading. <NAYELI Izaguirre Last Filed: 08/14/22 01:32> Core Measures AMI core measures followed: Yes <NAYELI Izaguirre Last Filed: 08/14/22 01:32> Measure exclusions: not indicated <NAYELI Izaguirre Last Filed: 08/14/22 01:32> Critical Care Time Critical Care Time Critical Care Time: Yes <NAYELI Izaguirre Last Filed: 08/14/22 01:32> Total Critical Care Time: 60 <NAYELI Izaguirre - Last Filed: 08/14/22 01:32> Attestation: I attest to this time spent taking care of the patient, obtaining history, physical, reviewing labs, imaging, speaking to my attending, speaking to specialist. <NAYELI Izaguirre - Last Filed: 08/14/22 01:32> Discharge Plan Discharge Clinical Impression: Fracture of wrist <NAYELI Merritt - Last Filed: 08/15/22 13:07> Patient Disposition: Still a Patient <NAYELI Merritt - Last Filed: 08/15/22 13:07> Interventions: Admission Worksheet (ED) Last Done: 08/15/22 07:18 <NAYELI Merritt - Last Filed: 08/15/22 13:07> Discharge Date/Time: 08/14/22 18:54 <NAYELI Merritt - Last Filed: 08/15/22 13:07>
[2022-08-13] MEDS: Morphine Sulfate 4 MG/ML CARTRIDGE IVPUSH ×2 (19:14→22:30)
[2022-08-13] MEDS: Lidocaine HCl 1 % MPF 30 ML VIAL SUBCUT (19:14)
[2022-08-13] MEDS: propofoL 200 MG/20 ML VIAL 170 MG IVPUSH (21:57)
[2022-08-13 23:04] LABS: Basophils Percent Auto 0.2 % (0-2); Eosinophils Absolute Auto 0.1 X10*3/uL (0.0-0.4); Eosinophils Percent Auto 0.4 % (0-4); Hematocrit 49.9 % (37.0-47.0); Hemoglobin 16.6 g/dl (12.0-16.0); Imm Gran Abs Auto 0.08 X10*3/uL (0.00-0.03); Imm Gran Pct Auto 0.4 % (0.0-0.4); Lymphocytes Absolute Auto 2.6 X10*3/uL (1.2-4.9); Lymphocytes Percent Auto 14.3 % (20-40); MANUAL DIFF FLAG NO; Mean Corpuscular HGB Conc 33.3 g/dl (31.0-35.0); Mean Corpuscular Hemoglobin 29.9 pg (27.0-33.0); Mean Corpuscular Volume 89.7 fL (80.0-98.0); Mean Platelet Volume 9.5 fL (9.4-12.3); Monocytes Percent Auto 5.3 % (2-11); Neutrophils Absolute Auto 14.6 x10*3/uL (2.0-8.3); Neutrophils Percent Auto 79.4 % (45-73); Platelet Count 324 X10*3/uL (160-400); Red Blood Count 5.56 X10*6/uL (4.20-5.50); Red Cell Distribution Width 13.2 % (11.0-16.0); White Blood Count 18.4 X10*3/uL (4.8-10.8)
[2022-08-13] MEDS: fentaNYL citrate/PF 100 MCG/2 ML VIAL 50 MCG IVPUSH (23:05)
[2022-08-13 23:11] LABS: Prothrombin Time 11.3 SEC (10.0-13.1)
[2022-08-13 23:19] LABS: COVID-19 Test Negative (Negative); IDNOW Serial# 55D5AD1C
[2022-08-13 23:20] LABS: Alanine Aminotransferase 24 U/L (0-31); Alkaline Phosphatase 82 U/L (39-117); Anion Gap 12 (12-20); Aspartate Amino Transferase 19 U/L (5-31); Bilirubin Total 0.7 mg/dL (0.0-1.0); Blood Urea Nitrogen 13 mg/dL (9-16); Calcium 9.6 mg/dL (8.4-10.2); Carbon Dioxide 27 mmol/L (22-29); Chloride 105 mmol/L (96-108); Creatinine Clr Calc Pharmacy 151.2; Estimated Glomerular Filt Rate > 60; Glucose Random 82 mg/dL (60-115); Magnesium 1.8 mg/dL (1.6-2.6); Potassium 4.3 mmol/L (3.3-5.1); Sodium 140 mmol/L (135-145); Total Protein 7.2 g/dL (6.5-8.0)
[2022-08-14 00:03] LABS: HCG Quantitative < 2 mIU/mL
[2022-08-14 01:00] VITALS: BP 134/73; PULSE 86; RESP 17; TEMP 36.8; O2SAT 93
[2022-08-14] MEDS: HYDROmorphone HCl 1 MG/ML SYRINGE IVPUSH ×4 (03:28→23:38)
[2022-08-14 04:01] VITALS: BP 107/48; PULSE 79; RESP 17; TEMP 36.8; O2SAT 94
--- NOTE | 2022-08-14 04:02 | PC.NURSE ---
Patient alert and oriented x3. Spouse at bedside. Patient reports falling on wrist while attempting to dress. [place] [facility] [place]. Plan is for wrist reduction at bedside and orthopedic consult in the morning. Patient medication with propofol as per MAR in presence of MD, RN and RT. MD performed wrist reduction. Splint applied and Xray at bedside confirmed wrist alignment. Patient medicated for pain with morphine, fentanyl and Dilaudid. Patient is currently NPO. Will continue to follow plan of care.
[2022-08-14 06:15] VITALS: BP 144/87; PULSE 83; RESP 17; TEMP 37.1; O2SAT 96
[2022-08-14 07:22] VITALS: BP 159/86; PULSE 86; RESP 20; O2SAT 95
--- NOTE | 2022-08-14 07:23 | PC.NURSE ---
Pt alert/oriented. reports 7/10 right wrist pain, +CMS, good cap refill. Declines additional pain management at this time. VSS. at bedside. Ambulatory to bathroom. Awaits surgical consult
[2022-08-14] MEDS: Lactated Ringers 1,000 ML 100 ML IVCONT ×2 (09:19→20:18)
--- NOTE | 2022-08-14 09:19 | PM.HPOR ---
History of Present Illness History of Present Illness Date of Service: 08/14/22 Chief complaint: Right distal radius fracture Narrative: Iman Bello is a 37 year old female who presented to the ED after sustaining a fall onto her right hand. She states she was pulling up her pants ands he lost her balance and fell on the right hand. She noticed immediate deformity and pain. While in the ED xrays were obtained and significant for acute displaced distal radius fracture. Several attempts were made in the ED for reduction which was not stable. She was placed angeline sugar tong splint and admitted to orthopedics for surgical planning. 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 Review of Systems Review of Systems: per [facility] Social History Social History Alcohol intake: current Alcohol intake frequency: holidays/special occasions only Alcohol type: hard liquor Smoked in Last 30 Days: Yes Substance Use Type: Marijuana Substance Use Frequency: Occasionally Last Used Substance: Weeks (ago) Any prior treatment program specific to substance use: No Advance Directives: No Advance Directives Information Provided: No Meds Allergies Allergy/AdvReac Type Severity Reaction Status Date / Time No Known Allergies Allergy Verified 08/13/22 17:55 Active Medications: Current Medications Acetaminophen (Acetaminophen 325 Mg Tablet) 650 mg PO Q6H PRN PRN Reason: Pain, Mild (Pain Scale 1-3) Docusate Sodium (Docusate Sodium 100 Mg Capsule) 100 mg PO BID [facility] Last Admin: 08/14/22 09:12 Dose: Not Given Hydromorphone HCl (Hydromorphone Hcl 1 Mg/Ml Syringe) 1 mg IVPUSH RQ4H WHILE AWAKE PRN; Protocol PRN Reason: Pain, Severe (Pain Scale 7-10) Last Admin: 08/14/22 09:11 Dose: 1 mg Hydromorphone HCl (Hydromorphone Hcl 0.5 Mg/0.5 Ml Syringe) 0.25 mg IVPUSH Q4H PRN; Protocol PRN Reason: Pain, Severe (Pain Scale 7-10) Lactated Ringer's (Lr) 1,000 mls @ 100 mls/hr IVCONT .Q10H [facility] Last Admin: 08/14/22 09:19 Dose: 100 mls/hr Ondansetron HCl (Ondansetron Hcl 4 Mg/2 Ml Vial) 4 mg IVPUSH RQ6H PRN PRN Reason: Vomiting Ondansetron HCl (Ondansetron Hcl 4 Mg/2 Ml Vial) 4 mg IVPUSH Q8H PRN PRN Reason: Nausea and Vomiting Oxycodone HCl (Oxycodone Hcl Immed Release 5 Mg Tablet) 5 mg PO Q4H PRN PRN Reason: Pain, Moderate (Pain Scale 4-6 Pharmacy Consult (Consult Rx Perform Med Rec) 1 each MISCELLANE ONCE STA Stop: 08/14/22 08:42 Sodium Chloride (0.9 % Sodium Chloride Flush 3 Ml Syringe) 3 ml IVFLUSH [facility] Home Medications Medication Instructions Recorded Confirmed Last Taken Type albuterol sulfate 90 mcg/actuation 2 puff inhalation Q4H PRN wheezing 08/14/22 08/14/22 08/13/22 History aerosol inhaler (Ventolin HFA) atorvastatin 10 mg tablet 20 mg PO DAILY 08/14/22 08/14/22 08/13/22 History dapagliflozin 5 mg tablet (Farxiga) 5 mg PO DAILY 08/14/22 08/14/22 08/13/22 History ferrous sulfate 325 mg (65 mg 325 mg PO DAILY 08/14/22 08/14/22 08/13/22 History iron) tablet glipizide 5 mg tablet, extended 5 mg PO DAILY 08/14/22 08/14/22 08/13/22 History release 24 hr levothyroxine 300 mcg tablet 150 mcg PO ALEXIS@0600 08/14/22 08/14/22 08/13/22 History levothyroxine 300 mcg tablet 300 mcg PO MOTUWETHFRSA@0600 08/14/22 08/14/22 08/12/22 History losartan 25 mg tablet 25 mg PO DAILY 08/14/22 08/14/22 08/13/22 History omeprazole 20 mg capsule,delayed 20 mg PO DAILY 08/14/22 08/14/22 08/13/22 History release Physical Exam Vital Signs: Vital Signs: Last Vital Signs Temp 98.7 F 08/14/22 06:15 Pulse 86 08/14/22 07:22 Resp 20 08/14/22 07:22 BP 159/86 H 08/14/22 07:22 Pulse Ox 95 08/14/22 07:22 O2 Del Method Nasal Cannula 08/14/22 07:22 O2 Flow Rate 2 08/14/22 07:22 Oxygen Flow Rate 2 08/13/22 22:05 BMI result Body Mass Index 57.0 Const: General: cooperative, healthy appearing, comfortable, no acute distress, well developed and alert Orientation/consciousness: patient oriented x3 HEENT: Head: Yes normal to inspection, Yes normocephalic and Yes atraumatic Eyes: General: appearance normal, both eyes and all related structures Neck: Neck: Yes normal visual inspection and Yes no lymphadenopathy Resp: Effort & Inspection: normal respiratory effort and able to speak in complete sentences Cardio: Rate: regular rate Peripheral pulses: Peripheral pulses 2+ throughout GI: Inspection: Yes normal to inspection Palpation (GI): Soft to palpation Skin: General skin exam: no rashes or lesions noted Neuro: General: patient oriented x3 Extrem: Other: Right wrist skin intact. There is significant swelling and bruising over the distal radius with tenderness over the fracture site. There is no pain over the elbow, negative forearm squeeze test. She has full range of motion of the elbow. She can fully extend all fingers and make a fist. Pulses are present and she is neurovascularly intact. Psych: Appearance: grossly normal Mental Status: mental status grossly normal Results Labs 08/13/22 22:57 08/13/22 22:57 Labs: Abnormal lab results 08/13/22 Range/Units 22:57 WBC 18.4 H (4.8-10.8) X10*3/uL RBC 5.56 H (4.20-5.50) X10*6/uL Hgb 16.6 H (12.0-16.0) g/dl Hct 49.9 H (37.0-47.0) % Neut % (Auto) 79.4 H (45-73) % Lymph % (Auto) 14.3 L (20-40) % Abs Immat Gran (auto) 0.08 H (0.00-0.03) X10*3/uL Absolute Neuts (auto) 14.6 H (2.0-8.3) x10*3/uL H & H 08/13/22 Range/Units 22:57 Hgb 16.6 H (12.0-16.0) g/dl Hct 49.9 H (37.0-47.0) % Coagulation 08/13/22 Range/Units 22:57 INR 1.0 (0.9-1.1) All other labs normal. Assessment and Plan (1) Fracture of wrist: Status: Acute Plan I discussed the case with Dr Bo and explained the extent of the injury to the patient and options available which include surgical intervention. I explained the procedure in detail along with the length of recovery and rehab course. I explained the risk, benefits and alternatives. Risk including, but not limited to infection, blood clots, bleeding, non union or malunion and nerve/tissue damage to surrounding areas. I answered all their questions and with their understanding they have consented to move forward with Operative Fixation of the right wrist . NPO after midnight. Time Spent With Patient Time: Total time managing care of this patient today ____ minutes. Quality Stroke Does the patient have a stroke diagnosis?: No VTE Prior VTE?: No VTE Risk Level:: Surgical - low VTE Device Contraindication: Treatment Not Indicated VTE Drug Contraindication: Treatment Not Indicated Procedures Date of Service Date of Service: 08/14/22
--- NOTE | 2022-08-14 09:22 | PC.NURSE ---
Attempting to splint pt, rayray pt reports 10/10 pain, medicated as charted. Mihir refused
--- NOTE | 2022-08-14 10:00 | P.CONHOSP_ITS ---
History of Present Illness Data of Consult Service Date: 08/14/22 Primary Care Provider: Fidel Anaya MD HPI 37 year old women presenting with fall and found to have acute radius fracture. Admitted by orthopedic team and plan for surgical intervention tomorrow. Her vital signs are stable. labs within acceptable limits. Sling in place. Review of Systems Review of Systems: Denies any recent fever chills or decrease in appetite respiratory denies any shortness of breath coverage production cardiovascular denied chest pain gastrointestinal denies any dysphagia abdominal pain nausea vomiting or diarrhea genitourinary denies any dysuria frequency or hematuria musculoskeletal radius fracture neuropsych denies any weakness or seizures all other systems reviewed are negative [facility] Medical History (Updated 08/14/22 @ 12:58 by Janet Bettencourt NP) Asthma Diabetes 1.5, managed as type 2 GERD (gastroesophageal reflux disease) Hyperlipidemia Hypertension Hypothyroidism Pertinent family history: no cardiac disease Social History Household Members: Spouse Housing: House Do you presently have visiting nurse or other home services: No Alcohol intake: current Alcohol intake frequency: holidays/special occasions only Alcohol type: hard liquor Patient Tobacco Use Status: Current someday Tobacco user Tobacco use type: Cigarette Cigarette Packs Per Day: 1 Cigarettes Per Day: 20.0 e-Cigarette/Vaping Use: Never Used Second Hand Smoke Exposure: Yes Substance Use Type: Other service: No Meds Allergies Allergy/AdvReac Type Severity Reaction Status Date / Time squash Allergy Hives Verified 08/15/22 13:18 pneumococcal vaccine AdvReac Redness of Verified 08/15/22 13:18 Skin Active Medications: Current Medications Acetaminophen (Acetaminophen 325 Mg Tablet) 650 mg PO Q6H PRN PRN Reason: Pain, Mild (Pain Scale 1-3) Docusate Sodium (Docusate Sodium 100 Mg Capsule) 100 mg PO BID [facility] Last Admin: 08/14/22 09:12 Dose: Not Given Hydromorphone HCl (Hydromorphone Hcl 1 Mg/Ml Syringe) 1 mg IVPUSH RQ4H WHILE AW KAUSHAL PRN; Protocol PRN Reason: Pain, Severe (Pain Scale 7-10) Last Admin: 08/14/22 09:11 Dose: 1 mg Hydromorphone HCl (Hydromorphone Hcl 0.5 Mg/0.5 Ml Syringe) 0.25 mg IVPUSH Q4H PRN; Protocol PRN Reason: Pain, Severe (Pain Scale 7-10) Lactated Ringer's (Lr) 1,000 mls @ 100 mls/hr IVCONT .Q10H [facility] Last Admin: 08/14/22 09:19 Dose: 100 mls/hr Ondansetron HCl (Ondansetron Hcl 4 Mg/2 Ml Vial) 4 mg IVPUSH RQ6H PRN PRN Reason: Vomiting Ondansetron HCl (Ondansetron Hcl 4 Mg/2 Ml Vial) 4 mg IVPUSH Q8H PRN PRN Reason: Nausea and Vomiting Oxycodone HCl (Oxycodone Hcl Immed Release 5 Mg Tablet) 5 mg PO Q4H PRN PRN Reason: Pain, Moderate (Pain Scale 4-6 Pharmacy Consult (Consult Rx Perform Med Rec) 1 each MISCELLANE ONCE STA Stop: 08/14/22 08:42 Sodium Chloride (0.9 % Sodium Chloride Flush 3 Ml Syringe) 3 ml IVFLUSH QSHIFT [facility] Home Medications Medication Instructions Recorded Confirmed Last Taken Type albuterol sulfate 90 mcg/actuation 2 puff inhalation Q4H PRN wheezing 08/14/22 08/14/22 08/13/22 History aerosol inhaler (Ventolin HFA) atorvastatin 10 mg tablet 20 mg PO DAILY 08/14/22 08/14/22 08/13/22 History dapagliflozin 5 mg tablet (Farxiga) 5 mg PO DAILY 08/14/22 08/14/22 08/13/22 History ferrous sulfate 325 mg (65 mg 325 mg PO DAILY 08/14/22 08/14/22 08/13/22 History iron) tablet glipizide 5 mg tablet, extended 5 mg PO DAILY 08/14/22 08/14/22 08/13/22 History release 24 hr levothyroxine 300 mcg tablet 150 mcg PO ALEXIS@59908/14/22 08/14/22 08/13/22 History levothyroxine 300 mcg tablet 300 mcg PO MOTUWETHFRSA@0600 08/14/22 08/14/22 08/12/22 History losartan 25 mg tablet 25 mg PO DAILY 08/14/22 08/14/22 08/13/22 History omeprazole 20 mg capsule,delayed 20 mg PO DAILY 08/14/22 08/14/22 08/13/22 History release Physical Exam Vital Signs and Narrative: Vital Signs: Last Vital Signs Temp 98.7 F 08/14/22 06:15 Pulse 86 08/14/22 07:22 Resp 20 08/14/22 07:22 BP 159/86 H 08/14/22 07:22 Pulse Ox 95 08/14/22 07:22 O2 Del Method Nasal Cannula 08/14/22 07:22 O2 Flow Rate 2 08/14/22 07:22 Oxygen Flow Rate 2 08/13/22 22:05 BMI result Body Mass Index 57.0 Appearing in no acute distress head is normocephalic atraumatic eyes pupils are PERRLA sclera is anicteric mouth throat mucous membranes are intact and moist neck is supple no lymphadenopathy, no JVD noted lung sounds are clear to auscultation heart regular rate rhythm, clear S1, S2 positive bowel sounds, abdomen is soft, nontender neuro patient is alert x3, no focal deficits Results Labs 08/13/22 22:57 08/13/22 22:57 Labs: Laboratory Results - last 24 hr 08/13/22 08/13/22 08/13/22 22:57 22:57 22:57 MCV 89.7 MCH 29.9 MCHC 33.3 RDW 13.2 Plt Count 324 MPV 9.5 Immature Gran % (Auto) 0.4 Neut % (Auto) 79.4 H Lymph % (Auto) 14.3 L [place] % (Auto) 5.3 Eos % (Auto) 0.4 Baso % (Auto) 0.2 Lymph # (Auto) 2.6 [place] # (Auto) 1.0 Eos # (Auto) 0.1 Baso # (Auto) 0.0 Abs Immat Gran (auto) 0.08 H Absolute Neuts (auto) 14.6 H Absolute Nucleated RBC 0.000 Nucleated RBC % (auto) 0.0 PT 11.3 INR 1.0 Anion Gap 12 Estim Creat Clear Calc 151.2 Estimated GFR > 60 Random Glucose 82 Calcium 9.6 Magnesium 1.8 Total Bilirubin 0.7 AST 19 ALT 24 Alkaline Phosphatase 82 Total Protein 7.2 Albumin 4.0 Beta HCG, Quant < 2 COVID-19 ([facility]) COVID-19 Clin Com 08/13/22 22:57 MCV MCH MCHC RDW Plt Count MPV Immature Gran % (Auto) Neut % (Auto) Lymph % (Auto) [place] % (Auto) Eos % (Auto) Baso % (Auto) Lymph # (Auto) [place] # (Auto) Eos # (Auto) Baso # (Auto) Abs Immat Gran (auto) Absolute Neuts (auto) Absolute Nucleated RBC Nucleated RBC % (auto) PT INR Anion Gap Estim Creat Clear Calc Estimated GFR Random Glucose Calcium Magnesium Total Bilirubin AST ALT Alkaline Phosphatase Total Protein Albumin Beta HCG, Quant COVID-19 ([facility]) Negative COVID-19 Clin Com See Note Imaging Radiologist's Impressions: Impressions Hand/Wrist X-Ray 08/13/22 18:08 IMPRESSION: Acute displaced fracture of the distal radius and ulnar styloid fracture as above. Forearm X-Ray 08/13/22 19:50 IMPRESSION: No significant change in the appearance of the comminuted displaced radial fracture. No proximal abnormality of the forearm. Wrist X-Ray 08/13/22 19:50 IMPRESSION: No significant change in the appearance of the comminuted displaced radial fracture. No proximal abnormality of the forearm. Wrist X-Ray 08/13/22 22:02 IMPRESSION: Comminuted distal radial metaphyseal fracture with persistent volar displacement of the distal fragment. Ulnar styloid fracture. Upper Extremity CTA 08/14/22 00:57 IMPRESSION: 1. Comminuted distal radial metaphyseal fracture with extension to the radial styloid. No definite intra-articular extension at the radiocarpal articulation. 2. Ulnar styloid fracture again noted. 3. The radial and ulnar arteries are intact. The interosseous artery is not well opacified at the level of the distal radial fracture. No active extravasation seen. This could be secondary to compression or vasospasm. Assessment and Plan (1) Fracture of wrist: Status: Acute Plan 37 year old women admitted for acute radius fracture Acute displaced distal radius fracture Plan for surgical intervention pain management NPO after midnight Hypertension stable blood pressure continue home medications Diabetes 2 ss, ada diet Asthma no exacerbation continue home inhalors HLD statin Anemia Stable HH Hypothyroidism Levothyroxine GERD PPI DVT prophylaxis as per admitting team Full code Time Spent With Patient Time: Total time managing care of this patient today ____ minutes.
--- NOTE | 2022-08-14 10:10 | PHA.MEDREC ---
Pharmacy Consult ? Medication Reconciliation Pharmacy has completed the medication reconciliation.
--- NOTE | 2022-08-14 10:51 | PC.NURSE ---
New splint applied by Shayy TYLER and mitul. Pt reports decreased pain level s/p Dilaudid to 7/10, appears comfortable. New IV start to left hand as prior IV leaking. LR at 100ml/hr
[2022-08-14 10:55] VITALS: BP 145/87; PULSE 106; RESP 20; TEMP 36.9; O2SAT 90
--- NOTE | 2022-08-14 17:35 | PC.NURSE ---
pt admitted to [facility] from the ER accompanied by SO . Pt presented to the ER on 08/13 after falling on to her right hand while putting on pants, pt is for the OR tomorrow instructed on NPO status after midnight , oriented to room and call [facility] system
[2022-08-14 19:27] VITALS: BP 136/65; PULSE 89; RESP 18; TEMP 36.4; O2SAT 96
[2022-08-14] MEDS: Docusate Sodium 100 MG CAPSULE PO (20:16)
[2022-08-14] MEDS: 0.9 % Sodium Chloride Flush 3 ML SYRINGE IVFLUSH (23:39)
[2022-08-15] VITALS (10 sets, daily range): BP systolic 113–157; BP diastolic 57–93; PULSE 76–121; RESP 16–20; TEMP 36.2–36.9; O2SAT 90–98
[2022-08-15] MEDS: Lactated Ringers 1,000 ML 100 ML IVCONT ×2 (06:28→19:24)
[2022-08-15 08:15] LABS: Glucose, Whole Blood 111 mg/dL (60-115)
[2022-08-15] MEDS: Atorvastatin Calcium 20 MG TABLET PO (08:25)
[2022-08-15] MEDS: Docusate Sodium 100 MG CAPSULE PO ×2 (08:25→20:36)
[2022-08-15] MEDS: Losartan Potassium 25 MG TABLET PO (08:26)
--- NOTE | 2022-08-15 09:10 | HO.PM.IMPN ---
Subjective Subjective Date of Service: 08/15/22 Review of Systems Follow up wrist fracture, consult no pain at this time anticipating surgery today Physical Exam Vital Signs: Vital Signs: Last Vital Signs Temp 97.1 F 08/15/22 07:57 Pulse 79 08/15/22 07:57 Resp 18 08/15/22 07:57 BP 138/63 08/15/22 07:57 Pulse Ox 95 08/15/22 07:57 O2 Del Method Room Air 08/15/22 07:57 O2 Flow Rate 2 08/14/22 07:22 Oxygen Flow Rate 2 08/13/22 22:05 BMI result Body Mass Index 57.0 Appearing in no acute distress lung sounds are clear to auscultation heart regular rate rhythm, clear S1, S2 positive bowel sounds, abdomen is soft, nontender neuro patient is alert x3, no focal deficits Right wrist wrapped Objective Data Active Medications Acetaminophen (Acetaminophen 325 Mg Tablet) 650 mg PO Q6H PRN PRN Reason: Pain, Mild (Pain Scale 1-3) Albuterol Sulfate (Albuterol Sulfate 90 Mcg 8 Gm Inhaler) 2 puff INHALE Q4H PRN PRN Reason: wheezing Atorvastatin Calcium (Atorvastatin Calcium 20 Mg Tablet) 20 mg PO DAILY [facility] Last Admin: 08/15/22 08:25 Dose: 20 mg Documented By: ALFREDO Docusate Sodium (Docusate Sodium 100 Mg Capsule) 100 mg PO BID [facility] Last Admin: 08/15/22 08:25 Dose: 100 mg Documented By: ALFREDO Empagliflozin (Empagliflozin 10 Mg Tablet) 10 mg PO DAILY [facility] Last Admin: 08/15/22 08:27 Dose: Not Given Documented By: ALFREDO Non-Admin Reason: NPO Ferrous Sulfate (Ferrous Sulfate 324 Mg Tablet.) 324 mg PO DAILY [facility] Last Admin: 08/15/22 08:27 Dose: Not Given Documented By: ALFREDO Non-Admin Reason: NPO Glucose (Glucose Gel 15 Gm Gel..Gram.) 15 gm PO Q15M PRN; Protocol PRN Reason: per Hypoglycemia Standing Ord. Hydromorphone HCl (Hydromorphone Hcl 1 Mg/Ml Syringe) 1 mg IVPUSH RQ4H WHILE AWAKE PRN; Protocol PRN Reason: Pain, Severe (Pain Scale 8-10) Last Admin: 08/14/22 23:38 Dose: 1 mg Documented By: CHE Hydromorphone HCl (Hydromorphone Hcl 0.5 Mg/0.5 Ml Syringe) 0.25 mg IVPUSH Q4H PRN; Protocol PRN Reason: Pain, Severe (Pain Scale 7-10) Lactated Ringer's (Lr) 1,000 mls @ 100 mls/hr IVCONT .Q10H [facility] Last Admin: 08/15/22 06:28 Dose: 100 mls/hr Documented By: CHE Cefazolin Sodium/Dextrose (Ancef) 2 gm in 50 mls @ 100 mls/hr IV PREOP ONE Stop: 08/15/22 12:45 Dextrose (D10) 250 mls @ 750 mls/hr IV Q15M PRN; Protocol PRN Reason: per Hypoglycemia Standing Ord. Insulin Human Lispro (Insulin Lispro 100 Unit/Ml 3 Ml Vial) 0 unit SUBCUT QIDACHS [facility]; Protocol Levothyroxine Sodium (Levothyroxine Sodium 150 Mcg Tablet) 150 mcg PO ALEXIS@0600 [facility] Levothyroxine Sodium (Levothyroxine Sodium 150 Mcg Tablet) 300 mcg PO MOTUWETHFRSA@0600 [facility] Losartan Potassium (Losartan Potassium 25 Mg Tablet) 25 mg PO DAILY [facility]; Protocol Last Admin: 08/15/22 08:26 Dose: 25 mg Documented By: ALFREDO Omeprazole (Omeprazole 20 Mg Capsule.Dr) 20 mg PO DAILY@0630 [facility] Ondansetron HCl (Ondansetron Hcl 4 Mg/2 Ml Vial) 4 mg IVPUSH RQ6H PRN PRN Reason: Vomiting Ondansetron HCl (Ondansetron Hcl 4 Mg/2 Ml Vial) 4 mg IVPUSH Q8H PRN PRN Reason: Nausea and Vomiting Oxycodone HCl (Oxycodone Hcl Immed Release 5 Mg Tablet) 5 mg PO Q4H PRN PRN Reason: Pain, Moderate (Pain Scale 4-6 Sodium Chloride (0.9 % Sodium Chloride Flush 3 Ml Syringe) 3 ml IVFLUSH QSHIFT [facility] Last Admin: 08/15/22 06:51 Dose: Not Given Documented By: ALFREDO Non-Admin Reason: IV Running Labs 08/13/22 22:57 08/13/22 22:57 Labs: Laboratory Results - last 24 hr 08/15/22 08:07 POC Glucose 111 Assessment and Plan (1) Fracture of wrist: Status: Acute Plan 37 year old women admitted for acute radius fracture Acute displaced distal radius fracture Plan for surgical intervention pain management surgical correction today Hypertension stable blood pressure continue home medications Diabetes 2 ss, ada diet Asthma no exacerbation continue home inhalors HLD statin Anemia Stable HH Hypothyroidism Levothyroxine GERD PPI DVT prophylaxis as per admitting team Attending Dr. Dee Full code Time Spent With Patient Time: Total time managing care of this patient today ____ minutes. Quality Stroke Does the patient have a stroke diagnosis?: No VTE Prior VTE?: No VTE Risk Level:: Surgical - low VTE Device Contraindication: Treatment Not Indicated VTE Drug Contraindication: Treatment Not Indicated
[2022-08-15 11:39] LABS: Glucose, Whole Blood 117 mg/dL (60-115)
--- NOTE | 2022-08-15 12:27 | MHC.CM.PN ---
pt lives w/ is covid vax has own ride home no services are expected to be needed
--- NOTE | 2022-08-15 14:13 | MHC.SHP ---
Pre-Procedural Eval Section A Date of Service: 08/15/22 The patient is an INPATIENT: Yes The History & Physical has been completed within 30 days and I have reviewed it.: Yes Section B Chief Complaint: Right distal radius fracture Allergies: Allergies Allergy/AdvReac Type Severity Reaction Status Date / Time squash Allergy Hives Verified 08/15/22 13:18 pneumococcal vaccine AdvReac Redness of Verified 08/15/22 13:18 Skin Plan I have reviewed the history and physical and performed a pertinent physical examination on my patient. No changes have occurred unless specified. Time Spent With Patient Time: Total time managing care of this patient today ____ minutes.
--- NOTE | 2022-08-15 15:05 | P.CONAN_ITS ---
[facility] Active Problems Active Problems: All Active Problems (Updated 08/14/22 @ 12:58 by Janet Bettencourt NP) Fracture of wrist (Acute) Past Medical History Medical History (Updated 08/14/22 @ 12:58 by Janet Bettencourt NP) Asthma Diabetes 1.5, managed as type 2 GERD (gastroesophageal reflux disease) Hyperlipidemia Hypertension Hypothyroidism Family History Family history of problems with anesthesia: No Surgical History History of Problems with Anesthesia: No Social History Social History Household Members: Spouse Housing: House Do you presently have visiting nurse or other home services: No Alcohol intake: current Alcohol intake frequency: holidays/special occasions only Alcohol type: hard liquor Patient Tobacco Use Status: Current someday Tobacco user Tobacco use type: Cigarette Cigarette Packs Per Day: 1 Cigarettes Per Day: 20.0 e-Cigarette/Vaping Use: Never Used Second Hand Smoke Exposure: Yes Substance Use Type: Other service: No Meds Allergies Allergy/AdvReac Type Severity Reaction Status Date / Time squash Allergy Hives Verified 08/15/22 13:18 pneumococcal vaccine AdvReac Redness of Verified 08/15/22 13:18 Skin Active Medications: Current Medications Acetaminophen (Acetaminophen 325 Mg Tablet) 650 mg PO Q6H PRN PRN Reason: Pain, Mild (Pain Scale 1-3) Albuterol Sulfate (Albuterol Sulfate 90 Mcg 8 Gm Inhaler) 2 puff INHALE Q4H PRN PRN Reason: wheezing Atorvastatin Calcium (Atorvastatin Calcium 20 Mg Tablet) 20 mg PO DAILY [facility] Last Admin: 08/15/22 08:25 Dose: 20 mg Docusate Sodium (Docusate Sodium 100 Mg Capsule) 100 mg PO BID [facility] Last Admin: 08/15/22 08:25 Dose: 100 mg Empagliflozin (Empagliflozin 10 Mg Tablet) 10 mg PO DAILY [facility] Last Admin: 08/15/22 08:27 Dose: Not Given Ferrous Sulfate (Ferrous Sulfate 324 Mg Tablet.Dr) 324 mg PO DAILY [facility] Last Admin: 08/15/22 08:27 Dose: Not Given Glucose (Glucose Gel 15 Gm Gel..Gram.) 15 gm PO Q15M PRN; Protocol PRN Reason: per Hypoglycemia Standing Ord. Hydromorphone HCl (Hydromorphone Hcl 1 Mg/Ml Syringe) 1 mg IVPUSH RQ4H WHILE AWAKE PRN; Protocol PRN Reason: Pain, Severe (Pain Scale 8-10) Last Admin: 08/14/22 23:38 Dose: 1 mg Hydromorphone HCl (Hydromorphone Hcl 0.5 Mg/0.5 Ml Syringe) 0.25 mg IVPUSH Q4H PRN; Protocol PRN Reason: Pain, Severe (Pain Scale 7-10) Lactated Ringer's (Lr) 1,000 mls @ 100 mls/hr IVCONT .Q10H [facility] Last Admin: 08/15/22 15:02 Dose: Not Given Dextrose (D10) 250 mls @ 750 mls/hr IV Q15M PRN; Protocol PRN Reason: per Hypoglycemia Standing Ord. Insulin Human Lispro (Insulin Lispro 100 Unit/Ml 3 Ml Vial) 0 unit SUBCUT QIDACHS [facility]; Protocol Last Admin: 08/15/22 11:33 Dose: Not Given Levothyroxine Sodium (Levothyroxine Sodium 150 Mcg Tablet) 150 mcg PO ALEXIS@0600 [facility] Levothyroxine Sodium (Levothyroxine Sodium 150 Mcg Tablet) 300 mcg PO MOTUWETHFRSA@0600 [facility] Losartan Potassium (Losartan Potassium 25 Mg Tablet) 25 mg PO DAILY [facility]; Protocol Last Admin: 08/15/22 08:26 Dose: 25 mg Omeprazole (Omeprazole 20 Mg Capsule.Dr) 20 mg PO DAILY@0630 [facility] Ondansetron HCl (Ondansetron Hcl 4 Mg/2 Ml Vial) 4 mg IVPUSH RQ6H PRN PRN Reason: Vomiting Ondansetron HCl (Ondansetron Hcl 4 Mg/2 Ml Vial) 4 mg IVPUSH Q8H PRN PRN Reason: Nausea and Vomiting Oxycodone HCl (Oxycodone Hcl Immed Release 5 Mg Tablet) 5 mg PO Q4H PRN PRN Reason: Pain, Moderate (Pain Scale 4-6 Sodium Chloride (0.9 % Sodium Chloride Flush 3 Ml Syringe) 3 ml IVFLUSH QSHIFT [facility] Last Admin: 08/15/22 15:02 Dose: Not Given Home Medications Medication Instructions Recorded Confirmed Last Taken Type albuterol sulfate 90 mcg/actuation 2 puff inhalation Q4H PRN wheezing 08/14/22 08/14/22 08/13/22 History aerosol inhaler (Ventolin HFA) atorvastatin 10 mg tablet 20 mg PO DAILY 08/14/22 08/14/22 08/13/22 History dapagliflozin 5 mg tablet (Farxiga) 5 mg PO DAILY 08/14/22 08/14/22 08/13/22 History ferrous sulfate 325 mg (65 mg 325 mg PO DAILY 08/14/22 08/14/22 08/13/22 History iron) tablet glipizide 5 mg tablet, extended 5 mg PO DAILY 08/14/22 08/14/22 08/13/22 History release 24 hr levothyroxine 300 mcg tablet 150 mcg PO ALEXIS@0600 08/14/22 08/14/22 08/13/22 History levothyroxine 300 mcg tablet 300 mcg PO MOTUWETHFRSA@0600 08/14/22 08/14/22 08/12/22 History losartan 25 mg tablet 25 mg PO DAILY 08/14/22 08/14/22 08/13/22 History omeprazole 20 mg capsule,delayed 20 mg PO DAILY 08/14/22 08/14/22 08/13/22 History release Exam Exam Date and Time: August 15, 2022 150 Height,Weight and Vital Signs: Height 5 ft 2 in Weight 141.521 kg Last Vital Signs Temp 97.9 F 08/15/22 13:38 Pulse 86 08/15/22 13:38 Resp 16 08/15/22 13:38 BP 146/90 H 08/15/22 13:38 Pulse Ox 96 08/15/22 13:38 O2 Del Method Room Air 08/15/22 13:38 O2 Flow Rate 2 08/14/22 07:22 Oxygen Flow Rate 2 08/13/22 22:05 Pertinent Lab Results Pertinent Lab Results: Laboratory Tests 08/13/22 08/13/22 08/13/22 22:57 22:57 22:57 WBC 18.4 H RBC 5.56 H Hgb 16.6 H Hct 49.9 H MCV 89.7 MCH 29.9 MCHC 33.3 RDW 13.2 Plt Count 324 MPV 9.5 Immature Gran % (Auto) 0.4 Neut % (Auto) 79.4 H Lymph % (Auto) 14.3 L Edwards % (Auto) 5.3 Eos % (Auto) 0.4 Baso % (Auto) 0.2 Lymph # (Auto) 2.6 Edwards # (Auto) 1.0 Eos # (Auto) 0.1 Baso # (Auto) 0.0 Abs Immat Gran (auto) 0.08 H Absolute Neuts (auto) 14.6 H Absolute Nucleated RBC 0.000 Nucleated RBC % (auto) 0.0 PT 11.3 INR 1.0 Sodium 140 Potassium 4.3 Chloride 105 Carbon Dioxide 27 Anion Gap 12 BUN 13 Creatinine 0.69 Estim Creat Clear Calc 151.2 Estimated GFR > 60 POC Glucose Random Glucose 82 Calcium 9.6 Magnesium 1.8 Total Bilirubin 0.7 AST 19 ALT 24 Alkaline Phosphatase 82 Total Protein 7.2 Albumin 4.0 Beta HCG, Quant < 2 COVID-19 ([facility]) COVID-19 [employer] Com 08/13/22 08/15/22 08/15/22 22:57 08:07 11:15 WBC RBC Hgb Hct MCV MCH MCHC RDW Plt Count MPV Immature Gran % (Auto) Neut % (Auto) Lymph % (Auto) Edwards % (Auto) Eos % (Auto) Baso % (Auto) Lymph # (Auto) Edwards # (Auto) Eos # (Auto) Baso # (Auto) Abs Immat Gran (auto) Absolute Neuts (auto) Absolute Nucleated RBC Nucleated RBC % (auto) PT INR Sodium Potassium Chloride Carbon Dioxide Anion Gap BUN Creatinine Estim Creat Clear Calc Estimated GFR POC Glucose 111 117 H Random Glucose Calcium Magnesium Total Bilirubin AST ALT Alkaline Phosphatase Total Protein Albumin Beta HCG, Quant COVID-19 ([facility]) Negative COVID-19 Clin Com See Note Airway Mallampati Class: IV TM Dist: >3cm Neck ROM: Full Other: morbid obesity Assessment and Plan Assessment Anesthesia Assessment: Anesthesia Plan Discussed and Chart Reviewed Final Anesthetic Review Family History of Problems with Anesthesia: No History of Problems with Anesthesia: No NPO: Yes ASA Class: III Final Preanesthetic Review: No Changes in Pt Med Stat, Meds/Allgs Chart Reviewed, Consent Obtained/Reviewed and Anes Risks/Benef Reviewed Patient Risk: Intermediate Procedure Risk: Low Anesthetic Plan Anesthetic Plan: MAC: and Regional Block Disposition: Standard PACU
--- NOTE | 2022-08-15 16:39 | P.DS_ITS ---
DS: Providers Provider Date of Service: 08/15/22 Date of admission: 08/14/22 08:46 Primary care physician: Fidel Anaya MD Consults: 08/14/22 08:46 Consult to Hospitalist Routine Comment: Consulting Provider: Hospitalist Reason For Exam: diabetes DS: Diagnosis Discharge Diagnosis (1) Fracture of wrist: Status: Acute DS: Summary Hospital Course Hospital Course: The patient underwent a successful ORIF right distal radius on 08/15/22, was transferred to PACU and then to the floor to recover. During their stay, their vitals were stable. Labs were unremarkable. Prior to discharge, splint and sling intact. Keep on and dry at all times. Any concerns with the dressing, please contact orthopedic office. No showering. The plan is to be discharged home. Time Spent with Patient Time attestation: Total time managing care of this patient today ____ minutes. Discharge coordination time: Less than 30 minutes Quality: Safe Use of Opioids Does Pt have an Active Cancer Diagnosis on the Problem List?: No Quality: Stroke Does the patient have a stroke diagnosis?: No Physical Exam Vital Signs: Vital Signs: Last Vital Signs Temp 97.9 F 08/15/22 13:38 Pulse 86 08/15/22 13:38 Resp 16 08/15/22 13:38 BP 146/90 H 08/15/22 13:38 Pulse Ox 96 08/15/22 13:38 O2 Del Method Room Air 08/15/22 13:38 O2 Flow Rate 2 08/14/22 07:22 Oxygen Flow Rate 2 08/13/22 22:05 BMI result Body Mass Index 57.0 Extrem: Other: Right wrist splint intact. Cap refill brisk. DS: Data Data Completed and Pending Labs on day of discharge: Laboratory Results - last 24 hr 08/15/22 08/15/22 08:07 11:15 POC Glucose 111 117 H Discharge Plan Discharge Anticipated Discharge Date/Time: 08/15/22 16:35 Patient Disposition: Home, Self-Care Discharge Diagnosis: s/p ORIF Rt writ Discharge Medications: New oxycodone 5 mg tablet 5 mg PO Q4H PRN (Reason: pain) 7 Days Qty: 42 0RF Rx Instructions: Partial Fill upon patient request. Continued atorvastatin 10 mg tablet 20 mg PO DAILY levothyroxine 300 mcg tablet 300 mcg PO MOTUWETHFRSA@0600 glipizide 5 mg tablet extended release 24hr 5 mg PO DAILY ferrous sulfate 325 mg (65 mg iron) tablet 325 mg PO DAILY losartan 25 mg tablet 25 mg PO DAILY omeprazole 20 mg capsule,delayed release(DR/EC) 20 mg PO DAILY albuterol sulfate [Ventolin HFA] 90 mcg/actuation HFA aerosol inhaler 2 puff inhalation Q4H PRN (Reason: wheezing) Farxiga 5 mg tablet 5 mg PO DAILY levothyroxine 300 mcg tablet 150 mcg PO ALEXIS@0600 Discharge Orders: Discharge Order (Routine); Ordered 08/15/22 Ordered By: Araceli Blackwood Diet: Regular diet Activity on Discharge: Sling Stand Alone Forms: Patient Portal Discharge page Activity Restrictions/Additional Instructions: * Keep splint clean, dry and intact * Elevate throughout the day * No heavy lifting * Perform fist/ finger exercises throughout the day * Do not bathe or shower--keep splint dry * Take Percocet Oxycodone 5mg tabs 1 tab by mouth every 4-6 hours as needed * Call [facility] orth[facility] with any questions or concerns. * Follow up with orthopedics in 7-10 days post op Care Plan Goals: Restore function of joint Health Concerns: none Plan of Treatment: as above Assessment: as above Patient Instructions: Wrist Fracture in Adults (ED), ORIF (DC)
--- NOTE | 2022-08-15 16:49 | P.BOP_ITS ---
Brief Operative Note Date of Service: 08/15/22 Pre-op diagnosis: RIght wrist Fracture Post-op diagnosis: other (1) Distal radius fracture 2) DRUJ dislocation) Procedure: 1) ORIF RIght distal radius 2) CRPP DRUJ Implants: [place] distal radius plate .064 k- wire Surgeon: Heraclio Bo MD Anesthesia: MAC and regional Was an College Recruiter used for this Procedure?: Yes College Recruiter: Araceli Blackwood Estimated blood loss (mL): 50 Tourniquet time (min): 80 IV fluids (mL): 1,000 Pathology: none sent Condition: stable Disposition: PACU
[2022-08-15 17:32] LABS: Glucose, Whole Blood 149 mg/dL (60-115)
[2022-08-15 20:03] LABS: Glucose, Whole Blood 197 mg/dL (60-115)
[2022-08-15] MEDS: Insulin Lispro 100 UNIT/ML 3 ML VIAL SUBCUT (20:35)
[2022-08-15] MEDS: oxyCODONE HCl Immed Release 5 MG TABLET PO (23:53)
[2022-08-16] MEDS: HYDROmorphone HCl 1 MG/ML SYRINGE IVPUSH ×2 (02:42→06:41)
[2022-08-16 04:00] VITALS: BP 122/64; PULSE 88; RESP 16; TEMP 36.5; O2SAT 98
[2022-08-16] MEDS: Lactated Ringers 1,000 ML 100 ML IVCONT (04:16)
[2022-08-16] MEDS: Omeprazole 20 MG CAPSULE.DR PO (05:42)
[2022-08-16] MEDS: Levothyroxine Sodium 150 MCG TABLET 300 MCG PO (05:42)
--- NOTE | 2022-08-16 07:05 | HO.POSTANES ---
Post Anesthesia Evaluation Post Anesthesia Evaluation Vital Signs: Vital Signs Temp Pulse Resp BP Pulse Ox O2 Del Method 08/16/22 04:00 97.7 F 88 16 122/64 98 Room Air 08/15/22 19:26 97.6 F 107 H 18 113/57 L 94 Room Air Anesthesia: Monitored and Nerve Block Mental Status: Awake Pain Control: Satisfactory (difficulty controlling pain) Nausea/Vomiting: None Hydration: Adequate Anesthesia-Related Issues: No Anes. Related Issues
[2022-08-16 07:29] VITALS: BP 169/79; PULSE 70; RESP 18; TEMP 36.6; O2SAT 97
[2022-08-16 07:36] LABS: Glucose, Whole Blood 135 mg/dL (60-115)
[2022-08-16] MEDS: Empagliflozin 10 MG TABLET PO (07:43)
[2022-08-16] MEDS: Atorvastatin Calcium 20 MG TABLET PO (07:43)
[2022-08-16] MEDS: Ferrous Sulfate 324 MG TABLET.DR PO (07:43)
[2022-08-16] MEDS: Losartan Potassium 25 MG TABLET PO (07:43)
--- NOTE | 2022-08-16 08:37 | MHC.CM.PN ---
Patient is discharged to home self care. Patients is providing transport home.
--- NOTE | 2022-08-23 10:39 | P.OP_ITS ---
Operative Note Operative Note Date of Service: 08/15/22 Narrative: Date of Service: 08/15/22 Pre-op diagnosis: RIght wrist Fracture Post-op diagnosis: other (1) Distal radius fracture 2) DRUJ dislocation) Procedure: 1) ORIF RIght distal radius 2) CRPP DRUJ Implants: [place] distal radius plate .064 k- wire Surgeon: Heraclio Bo MD Anesthesia: MAC and regional Was an Knitting Tester used for this Procedure?: Yes Knitting Tester: Araceli Blackwood Estimated blood loss (mL): 50 Tourniquet time (min): 80 IV fluids (mL): 1,000 Pathology: none sent Condition: stable Disposition: PACU Procedure in detail: The patient was brought to the operating room and placed supine on the hand table. The limb was prepped and draped in standard fashion and a time-out was called to identify proper site procedure proper surgeon. IV antibiotics per weight were administered. I began by exsanguinating the limb and insufflating the tourniquet to 250 mm Hg. I then made a standard incision over the FCR. FCR sheath was incised and the FCR was retracted ulnar. A rosa incision was made in the FPL sheath and this was opened up proximally and distally. The FPL was swept aside revealing the pronator quadratus which was periosteally elevated off the distal radius revealing a displaced, extra-articular, distal radius fracture. I used a [place] and right your to remove necrotic debris and reduced the fracture. Using biplanar fluoroscopy I was satisfied with the reduction . A 0.54 K-wire was placed through the radial styloid into the radial shaft to provisionally maintain the reduction. A [place] distal radius plate was selected and placed on the distal radius. Fluoroscopic images were taken to confirm appropriate alignment on the AP and lateral projection. Once I was satisfied with this the radial styloid screw and the distal row were placed using standard AO technique. I then filled the proximal row with locking screws again confirming fracture reduction and hardware position using biplanar fluoroscopy. Once this was done I placed 2 proximal nonlocking screws through the cortical shaft reducing the plate to the bone and reapproximating the anatomic tilt of the distal radius on the lateral projection. Again once I was satisfied with the position of the plate and the fracture alignment all instrumentation was removed. The DRUJ was assessed and found to be unstable. A 0.54 k- wire was placed from ulnar to radial through 4 cortices. Radiographs confirmed a reduced DRUL. The wound was then irrigared and a layered closure was performed with absorbable sub-Q suture, a running prolene and skin glue. Sterile dressings were applied. Patient was placed into a well-padded sugar tong splint. Patient was extubated brought to recovery room in stable condition there were no known complications.
== END 2022-08-16 10:16 | disposition home or self-care (01) | DRG 511 ==
LOC: HO.ED 08-14 01:32 → HO.EDOVER 08-14 08:56 → HO.S3 08-14 15:46
PROVIDERS: Orthopaedic Surgery; Physician Assistant; Admitting Provider Physician Assistant; Emergency Provider Student in an Organized Health Care Education/Training Program; PCP Internal Medicine; Visit Provider Physician Assistant
PROC: 0PSH04Z Reposition Right Radius with Internal Fixation Device, Open Approach (ICD-10-PCS; CPT 25608; principal; 2022-08-15 14:00)
DX: S59.201A Unspecified physeal fracture of lower end of radius, right arm, initial encounter for closed fracture (principal); Z68.43 Body mass index [BMI] 50.0-59.9, adult; S52.611A Displaced fracture of right ulna styloid process, initial encounter for closed fracture; W19.XXXA Unspecified fall, initial encounter; E78.5 Hyperlipidemia, unspecified; E03.9 Hypothyroidism, unspecified; E13.9 Other specified diabetes mellitus without complications; I10 Essential (primary) hypertension; E66.01 Morbid (severe) obesity due to excess calories; F17.210 Nicotine dependence, cigarettes, uncomplicated; Z20.822 Contact with and (suspected) exposure to COVID-19; Z71.6 Tobacco abuse counseling; Z88.7 Allergy status to serum and vaccine; Z79.84 Long term (current) use of oral hypoglycemic drugs; Z79.890 Hormone replacement therapy; Z79.899 Other long term (current) drug therapy
CPT/HCPCS: 25608; 25671; 73090; 73100; 73110; 73130; 73206; 80053; 82947; 83735; 84702; 85025; 85610; 87635; 99284; C1713; J0690; J1100; J1170; J2250; J2270; J2405; J2795; J3010

== ENCOUNTER 2022-08-23 12:49 | Outpatient (REF) | payer OTHER, SELFPAY ==
--- NOTE | ~2022-08-23 | XR_ITS ---
EXAMINATION: XR WRIST, RIGHT CLINICAL INFORMATION: Pain. COMPARISON: Intraoperative fluoroscopy dated 09/02/2022; CT angiogram right upper extremity dated 08/14/2022; radiographs dated 08/13/2022. TECHNIQUE: PA, lateral, and oblique views of the right wrist. FINDINGS: Bony mineralization is normal. A complex, comminuted fracture is redemonstrated of the distal right radius. A displaced, mildly comminuted ulnar styloid fracture is redemonstrated. An orthopedic plate and fixator screws are again applied to the distal right radius, without hardware failure or loosening. An orthopedic pin again traverses the distal radioulnar articulation. The proximal and distal carpal rows are intact. No focal soft tissue swelling, gas or foreign body is seen. XR/XR wrist RT min 3V IMPRESSION: There is stable alignment of comminuted distal radial and ulnar fracture fragments. There has been a prior ORIF, as detailed, without hardware failure or loosening noted.
== END 2022-08-23 12:50 | disposition home or self-care (01) ==
LOC: HO.HOSX 12:49
PROVIDERS: Visit Provider Physician Assistant
DX: S62.101A Fracture of unspecified carpal bone, right wrist, initial encounter for closed fracture (principal)
CPT/HCPCS: 29105; 73110

== ENCOUNTER 2022-09-01 07:21 | Outpatient (REF) | payer OTHER, SELFPAY ==
--- NOTE | ~2022-09-01 | XR_ITS ---
EXAMINATION: XR WRIST, RIGHT CLINICAL INFORMATION: Fracture COMPARISON: Previous exams most recent 08/23/2021 TECHNIQUE: PA, lateral, and oblique views of the right wrist. FINDINGS: There is a plate and screws transfixing the comminuted fracture of the distal radius. Orthopedic hardware appears unchanged. Bone alignment appears unchanged. There are ghost lucencies in the distal radial shaft from previous orthopedic hardware. There is lucency and comminution of bone of the dorsal distal radius appreciated on the lateral view. This is unchanged. There is a K wire or pin across the distal shafts of the radius and ulna. There is a displaced ulnar styloid fracture that is unchanged. There is diffuse soft tissue swelling. XR/XR wrist RT min 3V IMPRESSION: Diffuse soft tissue swelling. Stable appearance to ORIF of a distal radius fracture. Displaced ulnar styloid fracture unchanged.
== END 2022-09-01 07:22 | disposition home or self-care (01) ==
LOC: HO.HOSX 07:21
PROVIDERS: Visit Provider Physician Assistant
DX: S62.101D Fracture of unspecified carpal bone, right wrist, subsequent encounter for fracture with routine healing (principal)
CPT/HCPCS: 29075; 73110

== ENCOUNTER 2022-09-15 07:26 | Outpatient (REF) | payer OTHER, SELFPAY ==
--- NOTE | ~2022-09-15 | XR_ITS ---
EXAMINATION: XR WRIST, RIGHT CLINICAL INFORMATION: Fracture COMPARISON: Previous x-ray most recent 09/01/2022 TECHNIQUE: PA, lateral, and oblique views of the right wrist. FINDINGS: Plate and screws transfixing comminuted distal radius fracture appears unchanged. Fracture alignment is unchanged. Lucency and a comminuted bone fragments over the dorsal distal radius seen on the lateral view appear unchanged. K wire or pin. The distal shafts of the radius and ulna. Minimally displaced ulnar styloid fracture unchanged. Diffuse soft tissue swelling. XR/XR wrist RT min 3V IMPRESSION: ORIF of comminuted distal radius fracture. No change in alignment. Minimally displaced ulnar styloid fracture.
== END 2022-09-15 07:27 | disposition home or self-care (01) ==
LOC: HO.HOSX 07:26
PROVIDERS: Visit Provider Physician Assistant
DX: S62.101D Fracture of unspecified carpal bone, right wrist, subsequent encounter for fracture with routine healing (principal)
CPT/HCPCS: 29085; 73110

== ENCOUNTER 2022-10-06 07:49 | Outpatient (REF) | payer OTHER, SELFPAY | END 2022-10-06 07:50 | disposition home or self-care (01) | LOC: HO.HOSX 07:49 | PROVIDERS: Visit Provider Physician Assistant | DX: S62.101D Fracture of unspecified carpal bone, right wrist, subsequent encounter for fracture with routine healing (principal) | CPT/HCPCS: 73110 ==

== ENCOUNTER 2022-11-17 09:47 | Outpatient (REF) | payer OTHER, SELFPAY ==
--- NOTE | ~2022-11-17 | XR_ITS ---
EXAMINATION: XR WRIST, RIGHT CLINICAL INFORMATION: Pain COMPARISON: 10/06/2022 TECHNIQUE: PA, lateral, and oblique views of the right wrist. FINDINGS: ORIF changes distal radius again noted. Hardware intact without evidence of failure. Ghost tracks from previous ORIF distal ulnar as well as the distal radius. Unfused almost old fracture again noted. The fracture about the distal radius is overall similar without significant interval healing. Limited detail due to overlying hardware. Diffuse soft tissue swelling nonspecific. XR/XR wrist RT min 3V IMPRESSION: ORIF changes as above. No significant interval healing measurable. Nonspecific soft tissue swelling.
== END 2022-11-17 09:48 | disposition home or self-care (01) ==
LOC: HO.HOSX 09:47
PROVIDERS: Visit Provider Physician Assistant
DX: S62.101A Fracture of unspecified carpal bone, right wrist, initial encounter for closed fracture (principal)
CPT/HCPCS: 73110

== ENCOUNTER 2022-11-17 10:35 | Outpatient (AMB) | payer OTHER, SELFPAY ==
--- NOTE | 2022-11-17 10:46 | MHC.OFFVIS ---
Intake Vital Signs 11/17/22 10:51 Height 5 ft 3 in Weight 315 lb BMI 55.8 Intake Visit Reasons: PO- RT wrist ORIF 08/15/22 Intake Note: Iamn a 37 year old female who presents today for a post operative right wrist ORIF on 08/15/22. Patient reports intermittent pain is her wrist with activity. Currently attending OT, states improvement with ROM. Denies numbness or tingling. Allergies squash Allergy (Verified 11/17/22 10:50) Hives pneumococcal vaccine Adverse Reaction (Verified 11/17/22 10:50) Redness of Skin HPI PO- RT wrist ORIF 08/15/22 HPI Details 37-year-old female who returns to the office today for post-op right wrist ORIF, 08/15/22. She states he has intermittent pain in his wrist which is aggravated with activity. She denies any numbness or tingling. She also c/o tremors in her hand while smoking cigarette or holding objects. She is currently working on occupational therapy with benefits. She is doing well otherwise and has no other concerns. [facility] Medical History Asthma Diabetes 1.5, managed as type 2 GERD (gastroesophageal reflux disease) Hyperlipidemia Hypertension Hypothyroidism Social History Household Members: Spouse Housing: House Do you presently have visiting nurse or other home services: No Alcohol intake: current Alcohol intake frequency: holidays/special occasions only Alcohol type: hard liquor Patient Tobacco Use Status: Current someday Tobacco user Tobacco use type: Cigarette Cigarette Packs Per Day: 1 Cigarettes Per Day: 20.0 e-Cigarette/Vaping Use: Never Used Second Hand Smoke Exposure: Yes Substance Use Type: Other service: No Current occupational status: employed Review of Systems Const All systems reviewed & are unremarkable except as noted in HPI and below Physical Exam Vital Signs: BMI result Body Mass Index 55.8 Extrem Other: Right wrist: Normal to inspection, incision well healed. Pin site is healed, dry and intact. NVI. Results Reviewed Results Reviewed: X-rays of the right wrist obtained in the office today show adequate healing in distal radius with intact ortho hardware Assessment & Plan Assessment & Plan (1) Fracture of wrist: Code(s): S62.109A - Fracture of unspecified carpal bone, unspecified wrist, initial encounter for closed fracture Plan She will continue working with occupational therapy to improve her rehabilitation aide strength and motion. I would anticipate return to work in 4 weeks on December 18 with no restrictions. She was given note today and will see back if symptoms arise. Orders: Orders XR wrist RT min 3V Today M25.531 - Pain in right wrist Patient Instructions: Scribed for Araceli Blackwood PA-C, by Carlos Wild director medical writing, on 11/17/2022 at 10:30 AM JEFRY. Araceli Og PA-C, have personally reviewed and agree with the information entered by the scribe. Coding Level of Care Code Est Pt Level 3 (63079) Diagnoses Fracture of wrist S62.109A
[2022-11-17 10:51] VITALS: BMI 55.8
== END 2022-11-17 10:59 | disposition home or self-care (01) ==
PROVIDERS: PCP Internal Medicine; Visit Provider Physician Assistant
DX: S62.101D Fracture of unspecified carpal bone, right wrist, subsequent encounter for fracture with routine healing (principal)
CPT/HCPCS: 99213

== ENCOUNTER 2022-12-15 13:00 | Outpatient (RCR) | payer OTHER, SELFPAY ==
--- NOTE | 2022-10-20 11:19 | MHC.OT.EP ---
[address] [phone] Occupational Therapy Plan of Care Patient Name: Iman Butler Date of Evaluation: 10/20/22 Diagnosis: S/P ORIF R WRIST Pain Location: R WRIST, DORSAL ULNAR WRIST PAINFREE AT REST 7-8/10 WITH USE THROBBING, ACHY PAIN R ELBOW, POSTERIOR PAINFREE AT REST 4-5/10 WITH USE ACHY Pain Score: 0-8/10 Pain Scale Used: Numeric (0 - 10) Aggravating Factors: DAILY USE, GRASPING ITEMS, BUMPING RUE Alleviating Factors: USING ICE AND IBUPROFEN, RELIEF WITH HEAT/ HOT SHOWER Assessment: MS BUTLER IS 9 WEEKS POST OP S/P ORIF AND CRPP, SHE SUSTAINED A FALL RESULTING IN A DISTAL RADIUS FRACTURE. SHE CURRENTLY HAS A FIVE POUND LIFTING RESTRICTION AND WEARING A PREFAB WRIST ORTHOSIS. DIFFICULTIES AT HOME INCLUDE STYLING HAIR, FASTENING BRA, DONNING PANTS AND FEEDING SELF. SHE STATES SHE IS RELYING ON HER NON DOMINANT L HAND FOR MOST TASKS. SPOUSE ASSISTING WITH IADLs NEEDED. AT TIME OF OT EVAL, Pt HAS LIMITATIONS IN ROM, STRENGTH, EDEMA CONTROL IN HER HAND AND WRIST. ADDITIONALLY, SHE C/O PAIN IN HER ELBOW. A 91% LIMITATION IS REPORTED PER THE QUICK DASH ASSESSMENT. ONGOING SKILLED OT IS WARRANTED TO ACHIEVE MAXIMUM FUNCTIONAL LEVEL AND IMPROVE QOL. Frequency and Duration: The patient will be seen 2X/WEEK FOR 6 WEEKS Short Term Goals: IND HEP IND EDEMA MANAGEMENT AND SCAR MOBILIZATION R WRIST 50/50 ACHIEVE <1 CM TIP TO DPC ON RIGHT REPORT <3/10 PAIN DURING LIGHT IADLs Retirement Goals: QUICK DASH <60% TOLERATE LIFTING >15 POUNDS WITH <3/10 PAIN R GROSS GRASP >30 POUNDS R SUPINATION 45 DEGREES R WRIST 55/55 Treatment Plan: Therapeutic Exercise Therapeutic Activity Home Exercise Program Splinting Neuro Re-ed Patient Education Desensitization/Sensory Re-ed Edema Control ADL Training Ultrasound NMES Iontophoresis Paraffin Fluidotherapy MHP Cold Packs Joint Mobilization Soft Tissue Mobilization Kinesiotaping Other (see comments) Electronically Signed By: DANILO WALKER OTR/L Please Sign and return to therapist. Thank you once again for your referral.
--- NOTE | 2022-11-15 14:07 | MHC.OT.OP ---
[address] [phone] F: [phone] Occupational Therapy Progress Note Patient Name: Iman Butler Diagnosis: S/P ORIF R WRIST Date of Surgery: 08/15/22 Date of Evaluation: 10/20/22 Treatments to Date: 7 Cancellations to Date: 1 No Shows to Date: 0 Subjective: I'M TRYING TO PUT MORE WEIGHT THROUGH MY ARM... LIKE RISING FROM A CHAIR OR GETTING OUT OF BED Pain Score: 3 Pain Location: R D2/D3 DIPJ, PAINFREE WRIST Objective Measures: R SERVICES REP 25 POUNDS R WRIST EXTENSION 55 R WRIST FLEXION 50 R SUPINATION 50; L SUPINATION 45 DEGREES Status: Progressing Assessment: MS BUTLER IS SHOWING IMPROVEMENTS IN STRENGTH AND ROM. HAS MET STGs. PAIN GREATER IN RING FINGER THAN DORSAL WRIST, RELIEF FELT WITH COBAN WRAP. CONTINUE TO MONITOR FOR POSSIBLE SWAN NECK DEFORMITY. HAS LOOSE COMPOSITE FIST. ABLE TO COMPLETE MOST ADLs AND EMERGING WITH IADLs WITH DOMINANT RUE. REMAINS OOW, YET ADDRESSING WORK RELATED TASKS WITHIN THERAPY, INCLUDING LIGHT LIFTING AND CARRYING AND FINE MOTOR ACTIVITIES. Short Term Goals: IND HEP (MET) IND EDEMA MANAGEMENT AND SCAR MOBILIZATION (MET) R WRIST 50/50 (MET) ACHIEVE <1 CM TIP TO DPC ON RIGHT (MET) REPORT <3/10 PAIN DURING LIGHT IADLs (MET) Senior Care Goals: QUICK DASH <60% TOLERATE LIFTING >15 POUNDS WITH <3/10 PAIN R GROSS GRASP >30 POUNDS R SUPINATION 45 DEGREES (MET) R WRIST 55/55 Frequency and Duration: The patient will be seen 2X/WEEK FOR 2 WEEKS Treatment Plan: Therapeutic Exercise Therapeutic Activity Home Exercise Program Splinting Neuro Re-ed Patient Education Desensitization/Sensory Re-ed Edema Control ADL Training Ultrasound NMES Iontophoresis Paraffin Fluidotherapy MHP Cold Packs Joint Mobilization Soft Tissue Mobilization Kinesiotaping Other (see comments) Electronically Signed By: MITESH BALL/Caren Reviewed/agree with student documentation: N/A Therapist:
--- NOTE | 2022-12-15 14:06 | MHC.OT.DC ---
[address] [phone] F: [phone] Occupational Therapy Discharge Note Patient Name: Iman Butler Provider: Araceli Blackwood Diagnosis: S/P ORIF R WRIST Date of Surgery: 08/15/22 Date of Evaluation: 10/20/22 Date of Discharge: 12/15/22 Treatments to Date: 12 Cancellations to Date: 1 No Shows to Date: 0 Discharge Status: Achieved Goals Improved Function Independent with HEP Discharge Summary: MS BUTLER IS IND WITH HER HEP. SHE HAS MADE IMPROVEMENTS IN EDEMA, ROM, STRENGTH, COORDINATION AND PAIN. SHE WAS ABLE TO COMPLETE SIMULATED WORK TASKS WITH LITTLE TO NO PAIN. SUSPECT Pt WILL CONT TO IMPROVE WITH ONGOING PARTICIPATION IN HOME BASED PROGRAM AND RTW TASKS (12/18/22). NO FURTHER OT WARRANTED AT THIS TIME. GOALS MET. Electronically Signed By: DANILO WALKER OTR/L Reviewed/agree with student documentation: N/A Therapist: Please Sign and return to therapist, thank you for your referral.
== END 2022-12-15 14:05 | disposition home or self-care (01) ==
LOC: HO.OT 13:00
PROVIDERS: PCP Internal Medicine; Visit Provider Physician Assistant
DX: S62.101A Fracture of unspecified carpal bone, right wrist, initial encounter for closed fracture (principal)
CPT/HCPCS: 97035; 97110; 97166; 97530